=== PATIENT | male | born 2000 | race Caucasian/White ===

== ENCOUNTER 2023-09-19 13:54 | Inpatient (IN) | payer OTHER ==
[~2023-09-19 13:54] MED LIST: Iopamidol-370 76% 500 ML MDV (1 ML CHARGE) ONE
[2023-09-19] MEDS ORDERED: Sodium Chloride 0.9% 100 ML ONE (13:57)
[2023-09-19] MEDS ORDERED: Boostrix 0.5 ML (Tdap) VIAL (>/=7 yrs of age) ONE (13:57)
[2023-09-19] MEDS ORDERED: CEFAZOLIN 2 GM VIAL ONE (13:57)
[2023-09-19] MEDS ORDERED: Propofol 1,000 MG/100 ML VIAL IV ONE (14:07)
[2023-09-19 14:11] LABS: Hemoglobin 12.8 g/dL (14.0-18.0); Manual Diff?? YES; Mean Corpuscular HGB CONC 32.8 g/dL (32.0-36.0); Mean Corpuscular Volume 91.3 fl (78.0-98.0); Mean Platelet Volume 9.8 fL (7.4-10.4); Platelet Count 261 10x3/uL (130-400); RBC Distribution Width 12.5 % (11.5-14.5); Red Blood Cell (RBC) Count 4.27 mill/uL (4.00-5.20); White Blood Cell (WBC) Count 14.1 10x3/uL (4.8-10.8)
[2023-09-19 14:12] LABS: Delete Auto Diff?? YES
[2023-09-19] MEDS ORDERED: Sodium Chloride 3% 250 ML IVPB SCH (14:30)
[2023-09-19 14:31] LABS: INR-International Normal Ratio 1.4; Prothrombin Time 17.5 sec (12.0-14.7)
[2023-09-19 14:32] LABS: PTT 31.9 sec (22.9-36.1)
[2023-09-19 14:34] LABS: Band 8 % (5-11); CellaVision Operator ID LAB.KB; Lymphocytes 16 % (28-48); Monocytes 4 % (0-4); Neutrophil 70 % (31-61); Platelet Adequacy Comment Platelets Normal; RBC Morphology Within Normal Limits; Reactive Lymphocytes 2 % (0-10); Total Cell Count 101
[2023-09-19] MEDS ORDERED: niCARdipine 25 MG/10 ML SDV ONE (14:35)
[2023-09-19 14:37] LABS: Actual Bicarbonate (HCO3a) 23.7 mEq/L (22-28); Analyzer IN Cardio ER; Base Excess (BEa) -1.4 mEq/L (-2.0 to +3.0); CO2 Tension 41.5 mmHg (35.0-45.0); Calcium, Ionized (arterial) 1.12 mmol/L (1.12-1.30); Carboxyhemoglobin (COHb) 0.3 gm% (0.0-3.0); Hematocrit-ABG 39 % (42.0-52.0); Hemoglobin (Hb) 13.4 g/dL (11.4-15.4); O2 Tension (PaO2), arterial 187.4 mmHg (80.0-100.0); Potassium - ABG Lab 3.73 mmol/L (3.70-5.30); pH, Arterial 7.375 (7.35-7.45)
[2023-09-19 14:38] LABS: ALV-art Gradient 117.225 mmHg (0-20); Puncture Site RRA
[2023-09-19 14:38] LABS: Bacteria/HPF None Seen HPF (None Seen); Bilirubin Negative (Negative); Blood, Urine 3+ (Negative); Clarity Turbid (Clear); Glucose, Urine (Dipstick) Normal (Negative); Ketone, Urine Negative (Negative); Leukocyte Negative Leu/uL (Negative); Nitrite Negative (Negative); Protein, Urine (Dipstick) 100 mg/dL (Neg-Trace); RBC/HPF Greater than 50 HPF (0-3); Specific Gravity, Urine 1.021 (1.002-1.036); Squamous Epithelial None Seen HPF (0-3); Urobilinogen Normal mg/dL (Less than 2); pH, Urine 7.5 (5.0-9.0)
[2023-09-19 14:40] LABS: ALT (SGPT) 85 U/L (8-55); AST (SGOT) 102 U/L (5-34); Albumin 3.9 g/dL (3.5-5.0); Alkaline Phosphatase 86 U/L (50-130); Anion Gap 14 mmol/L (10-20); BUN (Urea Nitrogen) 12 mg/dL (8.9-20.6); Bilirubin, Total 0.6 mg/dL (0.2-1.2); Calc. Creatinine Clearance 0 mL/min (70-130); Calcium 8.4 mg/dL (7.8-10.44); Carbon Dioxide 22 mmol/L (22-29); Chloride 107 mmol/L (98-107); Estimated GFR 96; Globulin 2.9 g/dL (2.4-3.5); Glucose 148 mg/dL (70-105); Potassium 3.5 mmol/L (3.5-5.1); Protein, Total 6.8 g/dL (6.0-8.3); Sodium 139 mmol/L (136-145)
[2023-09-19] MEDS ORDERED: fentaNYL 50 mcg/mL 1 mL Vial ONE ×2 (14:47→15:12)
[2023-09-19] MEDS ORDERED: hydrALAZINE 20 MG/ML VIAL ONE (14:51)
[2023-09-19] MEDS ORDERED: fentaNYL PF 100 MCG/2 ML SYRINGE ONE (14:52)
[2023-09-19] MEDS ORDERED: PROPOFOL 20 ML ONE (14:52)
[2023-09-19] MEDS ORDERED: Rocuronium Bromide 10 MG/ML (10ML VIAL) ONE ×3 (14:53→15:30)
[2023-09-19] MEDS ORDERED: Ondansetron PF 4 MG/2 ML Vial ONE (14:53)
[2023-09-19] MEDS ORDERED: Dexamethasone 20 MG/5 ML VIAL ONE ×2 (14:53→15:30)
[2023-09-19] MEDS ORDERED: Lidocaine 1% PF 5 ML VIAL ONE (14:53)
[2023-09-19] MEDS ORDERED: levETIRAcetam 500 MG (5 mL) VIAL ONE (14:54)
[2023-09-19] MEDS ORDERED: Mannitol 12.5 GM/50 ML ONE (15:04)
[2023-09-19] MEDS ORDERED: EPINEPHrine 1 MG/ML VIAL ONE (15:05)
[2023-09-19] MEDS ORDERED: Lidocaine 1% (PF) 30 ML VIAL ONE (15:06)
[2023-09-19] MEDS ORDERED: Bacitracin Zinc Ointment 30 gm TUBE ONE (15:06)
[2023-09-19 15:16] LABS: Amphetamine Not Detected (NotDetected); Barbiturates Screen Not Detected (NotDetected); Benzodiazepine Screen Not Detected (NotDetected); Cocaine Metabolite Screen Not Detected (NotDetected); Methadone Not Detected (NotDetected); Methamphetamine Not Detected (NotDetected); Opiate Screen Not Detected (NotDetected); Oxycodone Screen Not Detected (NotDetected); Phencyclidine (PCP) Not Detected (NotDetected); THC/Cannabinoid Screen Not Detected (NotDetected); Tricyclic Screen Not Detected (NotDetected)
[2023-09-19 15:17] LABS: Acetaminophen Less than 10 mcg/mL (10.0-30.0); Alcohol Less than 10.0 mg/dL (Less than 10); Salicylate Less than 8.0 mg/dL (15.0-30.0)
[2023-09-19] MEDS ORDERED: PHENYLEPHRINE-NS 100 MCG/ML 10 ML SYRINGE ONE ×4 (15:30→17:00)
[2023-09-19] MEDS ORDERED: PROPOFOL 200 MG/20 ML VIAL ONE (15:30)
[2023-09-19] MEDS ORDERED: Vancomycin 1 GM VIAL ONE (16:00)
[2023-09-19] MEDS ORDERED: Thrombin 5000 UNITS/5 ML VIAL ONE (16:00)
[2023-09-19] MEDS ORDERED: Dextrose 50% Abboject 50 ML SYRINGE SLOW IVP PRN (16:21)
[2023-09-19] MEDS ORDERED: Glucagon 1 MG/ML KIT IM PRN (16:21)
[2023-09-19] MEDS ORDERED: Dextrose 5% in Water 1,000 ML IV PRN (16:21)
[2023-09-19] MEDS ORDERED: Ondansetron PF 4 MG/2 ML Vial IVP PRN (16:21)
[2023-09-19] MEDS ORDERED: Ondansetron ODT 4 MG TAB PO PRN (16:21)
[2023-09-19] MEDS ORDERED: TETANUS, DIPHTHERIA TOX,ADULT (TDVAX) 0.5 ML VIAL IM ONE (16:21)
[2023-09-19] MEDS ORDERED: Labetalol HCl 100 MG/20 ML VIAL SLOW IVP PRN (16:29)
[2023-09-19] MEDS ORDERED: niCARdipine 25 MG in Sodium Chloride 0.9% 250 ML 250 ML IVPB PRN ×2 (16:29→19:54)
[2023-09-19] MEDS ORDERED: Docusate 100 MG CAP PO PRN (16:29)
[2023-09-19] MEDS ORDERED: Ventilator Sedation Protocol 1 EACH FS SCH (16:30)
[2023-09-19] MEDS ORDERED: DISCONTINUE PREVIOUS NARCOTIC PAIN MEDICATIONS AND BENZODIAZEPINES FS SCH (16:45)
[2023-09-19] MEDS ORDERED: Propofol BOLUS 1,000 MG/100 ML VIAL IV PRN (16:45)
[2023-09-19] MEDS ORDERED: Fentanyl BOLUS 250 ML IVPB PRN (16:45)
[2023-09-19] MEDS ORDERED: Phenylephrine 40 MG/NS 250 ML 250 ML ONE (17:55)
[2023-09-19] MEDS ORDERED: CEFAZOLIN 1 GM VIAL ONE (19:05)
[2023-09-19] MEDS ORDERED: Sterile Water 20 ML ONE (19:05)
[2023-09-19] MEDS ORDERED: Midazolam HCl 2 mg/2 ml Vial ONE (19:22)
[2023-09-19] MEDS: Propofol 1,000 MG/100 ML VIAL IV PRN (19:35)
[2023-09-19] MEDS: Lactated Ringer's 1,000 ML IV SCH (19:45)
[2023-09-19] MEDS ORDERED: Water For Inject, Bacteriostat 30 ML ONE (19:47)
[2023-09-19] MEDS: NOREPINEPHRINE 8 MG/250 ML-D5W 250 ML IVPB SCH ×2 (20:00→20:13)
[2023-09-19 20:02] LABS: Actual Bicarbonate (HCO3a) 20.8 mEq/L (22-28); Base Excess (BEa) -3.7 mEq/L (-2.0 to +3.0); CO2 Tension 35.7 mmHg (35.0-45.0); Calcium, Ionized (arterial) 1.08 mmol/L (1.12-1.30); Carboxyhemoglobin (COHb) 0.1 gm% (0.0-3.0); Hematocrit-ABG 36 % (42.0-52.0); Hemoglobin (Hb) 12.3 g/dL (11.4-15.4); O2 Tension (PaO2), arterial 378.8 mmHg (80.0-100.0); Potassium - ABG Lab 4.04 mmol/L (3.70-5.30); pH, Arterial 7.383 (7.35-7.45)
[2023-09-19 20:15] LABS: Puncture Site ALINE
[2023-09-19 20:16] LABS: ALV-art Gradient 146.975 mmHg (0-20)
[2023-09-19] MEDS: Fentanyl CADD 100 ML IV SCH (20:16)
[2023-09-19 20:29] LABS: #Neutrophils 12.2 thou/uL (1.40-6.50); %Basophils 0.1 % (0.0-1.0); %Eosinophils 0.2 % (0.0-10.0); %Lymphocytes 1.8 % (28.0-48.0); %Monocytes 7.4 % (0.0-4.0); %Neutrophils 90.1 % (31.0-61.0); Hematocrit 35.9 % (42.0-52.0); Hemoglobin 11.9 g/dL (14.0-18.0); Mean Corpuscular HGB CONC 33.1 g/dL (32.0-36.0); Mean Corpuscular Hemoglobin 30.1 pg (25.0-35.0); Mean Corpuscular Volume 90.9 fl (78.0-98.0); Mean Platelet Volume 9.5 fL (7.4-10.4); Platelet Count 208 10x3/uL (130-400); RBC Distribution Width 12.6 % (11.5-14.5); Red Blood Cell (RBC) Count 3.95 mill/uL (4.00-5.20); White Blood Cell (WBC) Count 13.6 10x3/uL (4.8-10.8)
[2023-09-19 20:45] LABS: INR-International Normal Ratio 1.3; PTT 26.2 sec (22.9-36.1); Prothrombin Time 16.7 sec (12.0-14.7)
[2023-09-19 20:46] LABS: Lactic Acid 2.4 mmol/L (0.5-2.2)
[2023-09-19 20:53] LABS: ALT (SGPT) 81 U/L (8-55); AST (SGOT) 117 U/L (5-34); Albumin 3.7 g/dL (3.5-5.0); Alkaline Phosphatase 70 U/L (50-130); Anion Gap 13 mmol/L (10-20); BUN (Urea Nitrogen) 12 mg/dL (8.9-20.6); Calc. Creatinine Clearance 0 mL/min (70-130); Calcium 8.1 mg/dL (7.8-10.44); Carbon Dioxide 20 mmol/L (22-29); Chloride 110 mmol/L (98-107); Estimated GFR 95; Globulin 2.5 g/dL (2.4-3.5); Glucose 144 mg/dL (70-105); Magnesium 1.8 mg/dL (1.7-2.2); Phosphorus 2.9 mg/dL (2.3-4.7); Potassium 4.2 mmol/L (3.5-5.1); Protein, Total 6.2 g/dL (6.0-8.3); Sodium 139 mmol/L (136-145)
[2023-09-19] MEDS ORDERED: levETIRAcetam 500 MG (5 mL) VIAL SLOW IVP SCH (21:00)
[2023-09-19] MEDS: CEFAZOLIN 2 GM in Sodium Chloride 0.9% 100 ML IVPB SCH (21:45)
[2023-09-19] MEDS: levETIRAcetam 500 MG (5 mL) VIAL SLOW IVP SCH (21:46)
[2023-09-19] MEDS ORDERED: CEFAZOLIN 1 GM VIAL SLOW IVP SCH (22:00)
[2023-09-19] MEDS ORDERED: CEFAZOLIN 1 GM in Sodium Chloride 0.9% 100 ML IVPB SCH (22:00)
[2023-09-19 22:40] LABS: Hematocrit 35.3 % (42.0-52.0); Hemoglobin 11.6 g/dL (14.0-18.0)
[2023-09-20] MEDS: Lactated Ringer's 1,000 ML IV SCH ×4 (03:34→21:43)
[2023-09-20 04:18] LABS: #Monocytes 1.4 thou/uL (0.11-0.59); #Neutrophils 11.3 thou/uL (1.40-6.50); %Basophils 0.1 % (0.0-1.0); %Lymphocytes 3.8 % (28.0-48.0); %Monocytes 10.6 % (0.0-4.0); %Neutrophils 85.1 % (31.0-61.0); Hematocrit 35.4 % (42.0-52.0); Hemoglobin 11.5 g/dL (14.0-18.0); Mean Corpuscular HGB CONC 32.5 g/dL (32.0-36.0); Mean Corpuscular Hemoglobin 30.2 pg (25.0-35.0); Mean Corpuscular Volume 92.9 fl (78.0-98.0); Mean Platelet Volume 10.1 fL (7.4-10.4); Platelet Count 214 10x3/uL (130-400); RBC Distribution Width 12.8 % (11.5-14.5); Red Blood Cell (RBC) Count 3.81 mill/uL (4.00-5.20); White Blood Cell (WBC) Count 13.3 10x3/uL (4.8-10.8)
[2023-09-20 04:39] LABS: ALT (SGPT) 75 U/L (8-55); AST (SGOT) 112 U/L (5-34); Albumin 3.6 g/dL (3.5-5.0); Alkaline Phosphatase 62 U/L (50-130); Bilirubin, Direct 0.3 mg/dL (0.1-0.3); Bilirubin, Total 0.7 mg/dL (0.2-1.2); Protein, Total 6.3 g/dL (6.0-8.3)
[2023-09-20 04:45] LABS: Anion Gap 13 mmol/L (10-20); BUN (Urea Nitrogen) 11 mg/dL (8.9-20.6); Calc. Creatinine Clearance 136 mL/min (70-130); Calcium 8.4 mg/dL (7.8-10.44); Carbon Dioxide 22 mmol/L (22-29); Chloride 109 mmol/L (98-107); Estimated GFR 100; Glucose 148 mg/dL (70-105); Magnesium 1.8 mg/dL (1.7-2.2); Phosphorus 3.4 mg/dL (2.3-4.7); Potassium 3.9 mmol/L (3.5-5.1); Sodium 140 mmol/L (136-145)
[2023-09-20 04:58] LABS: INR-International Normal Ratio 1.2; PTT 27.1 sec (22.9-36.1); Prothrombin Time 15.8 sec (12.0-14.7)
[2023-09-20] MEDS: CEFAZOLIN 2 GM in Sodium Chloride 0.9% 100 ML IVPB SCH (05:30)
[2023-09-20 08:02] LABS: Actual Bicarbonate (HCO3a) 22.4 mEq/L (22-28); Base Excess (BEa) -2.1 mEq/L (-2.0 to +3.0); CO2 Tension 37.6 mmHg (35.0-45.0); Calcium, Ionized (arterial) 1.15 mmol/L (1.12-1.30); Carboxyhemoglobin (COHb) 0.8 gm% (0.0-3.0); Hematocrit-ABG 35 % (42.0-52.0); Hemoglobin (Hb) 11.9 g/dL (11.4-15.4); O2 Tension (PaO2), arterial 149.1 mmHg (80.0-100.0); Potassium - ABG Lab 3.84 mmol/L (3.70-5.30); pH, Arterial 7.393 (7.35-7.45)
[2023-09-20 08:03] LABS: Puncture Site Arterial Line
[2023-09-20] MEDS: Famotidine 20 MG TAB PO SCH (08:35)
[2023-09-20] MEDS: levETIRAcetam 500 MG (5 mL) VIAL SLOW IVP SCH ×2 (08:35→20:51)
[2023-09-20] MEDS ORDERED: Magnesium 2 GM/50 ML(in water) 2 GM in Premix 1 BAG IVPB SCH (08:45)
[2023-09-20] MEDS ORDERED: FLU VACC QS2023-24(6MOS UP)/PF 60 MCG/0.5 ML SYRINGE IM ONE (09:00)
[2023-09-20] MEDS: Propofol 1,000 MG/100 ML VIAL IV PRN ×2 (14:39→23:23)
[2023-09-20] MEDS: CEFAZOLIN 1 GM in Sodium Chloride 0.9% 100 ML IVPB SCH ×2 (14:39→22:06)
[2023-09-20] MEDS: NOREPINEPHRINE 8 MG/250 ML-D5W 250 ML IVPB SCH (16:19)
[2023-09-20] MEDS: Fentanyl CADD 100 ML IV SCH (17:10)
[2023-09-20] MEDS ORDERED: Mannitol 12.5 GM/50 ML SLOW IVP SCH ×2 (18:30→20:17)
[2023-09-20 19:01] LABS: Sodium 140 mmol/L (136-145)
[2023-09-20] MEDS ORDERED: Furosemide 20 MG (2 mL) VIAL SLOW IVP SCH (20:17)
[2023-09-20] MEDS: Acetaminophen 325 MG TAB PO PRN (20:26)
[2023-09-20] MEDS: Ondansetron PF 4 MG/2 ML Vial IVP PRN (22:59)
[2023-09-20] MEDS: Metoclopramide HCl 10 MG (2 mL) VIAL IVP SCH (23:23)
[2023-09-20 23:32] LABS: Sodium 140 mmol/L (136-145)
[2023-09-20] MEDS: Lorazepam 2 MG/ML VIAL SLOW IVP PRN (23:48)
[2023-09-21] MEDS: Lactated Ringer's 1,000 ML IV SCH ×2 (00:11→13:22)
[2023-09-21] MEDS: Mannitol 12.5 GM/50 ML SLOW IVP PRN ×4 (00:15→22:54)
[2023-09-21] MEDS ORDERED: Furosemide 40 MG (4 mL) VIAL SLOW IVP SCH ×2 (01:45→12:45)
[2023-09-21] MEDS ORDERED: Mannitol 12.5 GM/50 ML SLOW IVP SCH ×2 (01:45→12:45)
[2023-09-21] MEDS: Dexmedetomidine 400 MCG, Admixture Fee 1 EACH in Sodium Chloride 0.9% 96 ML IVPB SCH ×3 (02:08→21:28)
[2023-09-21] MEDS: Propofol 1,000 MG/100 ML VIAL IV PRN ×7 (02:21→23:40)
[2023-09-21] MEDS: Acetaminophen 325 MG TAB PO PRN (02:50)
[2023-09-21] MEDS ORDERED: Morphine 10 MG/ML VIAL SLOW IVP SCH (03:00)
[2023-09-21] MEDS ORDERED: Vecuronium 10 MG VIAL IV SCH (03:00)
[2023-09-21] MEDS ORDERED: Sterile Water 10 ML ONE (03:04)
[2023-09-21 04:00] LABS: #Monocytes 1.5 thou/uL (0.11-0.59); %Basophils 0.1 % (0.0-1.0); %Lymphocytes 5.4 % (28.0-48.0); %Monocytes 11.3 % (0.0-4.0); %Neutrophils 82.7 % (31.0-61.0); Hematocrit 32.5 % (42.0-52.0); Hemoglobin 10.8 g/dL (14.0-18.0); Mean Corpuscular HGB CONC 33.2 g/dL (32.0-36.0); Mean Corpuscular Hemoglobin 29.8 pg (25.0-35.0); Mean Corpuscular Volume 89.8 fl (78.0-98.0); Mean Platelet Volume 10.3 fL (7.4-10.4); Platelet Count 219 10x3/uL (130-400); RBC Distribution Width 12.8 % (11.5-14.5); Red Blood Cell (RBC) Count 3.62 mill/uL (4.00-5.20); White Blood Cell (WBC) Count 13.2 10x3/uL (4.8-10.8)
[2023-09-21 04:28] LABS: Anion Gap 15 mmol/L (10-20); BUN (Urea Nitrogen) 11 mg/dL (8.9-20.6); Calc. Creatinine Clearance 134 mL/min (70-130); Carbon Dioxide 27 mmol/L (22-29); Chloride 100 mmol/L (98-107); Estimated GFR 97; Glucose 149 mg/dL (70-105); Potassium 3.4 mmol/L (3.5-5.1); Sodium 139 mmol/L (136-145)
[2023-09-21] MEDS: Fentanyl CADD 100 ML IV SCH ×2 (05:04→15:13)
[2023-09-21] MEDS: Acetaminophen 650 MG/20.3 ML UDCUP PER TUBE SCH ×4 (05:33→21:28)
[2023-09-21] MEDS: CEFAZOLIN 1 GM in Sodium Chloride 0.9% 100 ML IVPB SCH ×3 (05:41→21:29)
[2023-09-21] MEDS ORDERED: Electrolyte Replacement Protocol 1 EACH FS SCH (06:30)
[2023-09-21] MEDS ORDERED: Electrolyte Replacement Protocol FS PRN (06:45)
[2023-09-21] MEDS ORDERED: Potassium Bicarbonate/Cit Ac 20 MEQ TAB PER TUBE SCH (06:45)
[2023-09-21] MEDS ORDERED: Magnesium 2 GM/50 ML(in water) 2 GM in Premix 1 BAG IVPB SCH (06:45)
[2023-09-21] MEDS: levETIRAcetam 500 MG (5 mL) VIAL SLOW IVP SCH ×2 (08:30→21:29)
[2023-09-21] MEDS: Metoclopramide HCl 10 MG (2 mL) VIAL IVP SCH ×3 (08:30→23:41)
[2023-09-21] MEDS: Famotidine 20 MG TAB PO SCH ×2 (08:30→21:29)
[2023-09-21 10:52] LABS: Sodium 140 mmol/L (136-145)
[2023-09-21 13:41] LABS: Potassium 3.6 mmol/L (3.5-5.1)
[2023-09-21 16:00] LABS: Sodium 140 mmol/L (136-145)
[2023-09-21] MEDS: NOREPINEPHRINE 8 MG/250 ML-D5W 250 ML IVPB SCH (16:09)
[2023-09-21] MEDS: Furosemide 100 MG (10 mL) VIAL SLOW IVP PRN ×2 (16:30→22:54)
[2023-09-21 22:25] LABS: Sodium 140 mmol/L (136-145)
[2023-09-22] MEDS: Fentanyl CADD 100 ML IV SCH ×3 (01:27→20:44)
[2023-09-22] MEDS: Lactated Ringer's 1,000 ML IV SCH ×2 (02:09→13:19)
[2023-09-22] MEDS: Propofol 1,000 MG/100 ML VIAL IV PRN ×5 (04:15→20:43)
[2023-09-22] MEDS: Acetaminophen 650 MG/20.3 ML UDCUP PER TUBE SCH ×4 (04:15→20:36)
[2023-09-22 04:33] LABS: Magnesium 2.2 mg/dL (1.7-2.2)
[2023-09-22] MEDS: CEFAZOLIN 1 GM in Sodium Chloride 0.9% 100 ML IVPB SCH ×3 (05:15→21:09)
[2023-09-22] MEDS: NOREPINEPHRINE 8 MG/250 ML-D5W 250 ML IVPB SCH (05:15)
[2023-09-22 06:54] LABS: Sodium 144 mmol/L (136-145)
[2023-09-22 07:05] LABS: Actual Bicarbonate (HCO3a) 28.6 mEq/L (22-28); Base Excess (BEa) 6.2 mEq/L (-2.0 to +3.0); CO2 Tension 33.3 mmHg (35.0-45.0); Carboxyhemoglobin (COHb) 0.3 gm% (0.0-3.0); Hematocrit-ABG 32 % (42.0-52.0); Hemoglobin (Hb) 10.8 g/dL (11.4-15.4); O2 Tension (PaO2), arterial 115.6 mmHg (80.0-100.0); Potassium - ABG Lab 3.27 mmol/L (3.70-5.30); pH, Arterial 7.552 (7.35-7.45)
[2023-09-22 07:13] LABS: #Eosinphils 0.1 thou/uL (0.0-0.7); #Monocytes 0.7 thou/uL (0.11-0.59); %Basophils 0.2 % (0.0-1.0); %Eosinophils 0.5 % (0.0-10.0); %Monocytes 6.9 % (0.0-4.0); %Neutrophils 82.8 % (31.0-61.0); Hematocrit 29.3 % (42.0-52.0); Mean Corpuscular HGB CONC 34.1 g/dL (32.0-36.0); Mean Corpuscular Hemoglobin 30.4 pg (25.0-35.0); Mean Corpuscular Volume 89.1 fl (78.0-98.0); Mean Platelet Volume 10.3 fL (7.4-10.4); Platelet Count 165 10x3/uL (130-400); RBC Distribution Width 12.3 % (11.5-14.5); Red Blood Cell (RBC) Count 3.29 mill/uL (4.00-5.20); White Blood Cell (WBC) Count 9.7 10x3/uL (4.8-10.8)
[2023-09-22 07:17] LABS: Puncture Site Arterial Line
[2023-09-22 07:19] LABS: ALV-art Gradient 127.975 mmHg (0-20)
[2023-09-22] MEDS: Metoclopramide HCl 10 MG (2 mL) VIAL IVP SCH ×3 (08:08→23:21)
[2023-09-22] MEDS: levETIRAcetam 500 MG (5 mL) VIAL SLOW IVP SCH ×2 (08:09→20:36)
[2023-09-22] MEDS: Famotidine 20 MG TAB PO SCH ×2 (08:09→20:36)
[2023-09-22] MEDS: Furosemide 100 MG (10 mL) VIAL SLOW IVP PRN (08:10)
[2023-09-22 08:12] LABS: ALT (SGPT) 31 U/L (8-55); AST (SGOT) 49 U/L (5-34); Albumin 3.6 g/dL (3.5-5.0); Alkaline Phosphatase 74 U/L (50-130); Anion Gap 17 mmol/L (10-20); BUN (Urea Nitrogen) 12 mg/dL (8.9-20.6); Bilirubin, Total 0.6 mg/dL (0.2-1.2); Calc. Creatinine Clearance 141 mL/min (70-130); Calcium 8.9 mg/dL (7.8-10.44); Carbon Dioxide 28 mmol/L (22-29); Chloride 101 mmol/L (98-107); Estimated GFR 109; Globulin 3.6 g/dL (2.4-3.5); Glucose 119 mg/dL (70-105); Potassium 3.2 mmol/L (3.5-5.1); Protein, Total 7.2 g/dL (6.0-8.3); Sodium 143 mmol/L (136-145)
[2023-09-22] MEDS: Mannitol 12.5 GM/50 ML SLOW IVP PRN (08:24)
[2023-09-22] MEDS ORDERED: Potassium Bicarbonate/Cit Ac 20 MEQ TAB PER TUBE SCH (09:00)
[2023-09-22] MEDS: Senokot S 8.6-50 MG TAB PO SCH ×2 (09:42→20:36)
[2023-09-22] MEDS: Polyethylene Glycol 3350 17 GM Packet PO SCH (09:43)
[2023-09-22 10:37] LABS: Actual Bicarbonate (HCO3a) 32.6 mEq/L (22-28); Base Excess (BEa) 7.7 mEq/L (-2.0 to +3.0); CO2 Tension 47.5 mmHg (35.0-45.0); Calcium, Ionized (arterial) 1.11 mmol/L (1.12-1.30); Carboxyhemoglobin (COHb) 0.3 gm% (0.0-3.0); Hematocrit-ABG 33 % (42.0-52.0); Hemoglobin (Hb) 11.1 g/dL (11.4-15.4); O2 Tension (PaO2), arterial 140.2 mmHg (80.0-100.0); Potassium - ABG Lab 3.69 mmol/L (3.70-5.30); pH, Arterial 7.455 (7.35-7.45)
[2023-09-22 10:39] LABS: ALV-art Gradient 85.625 mmHg (0-20); Puncture Site Arterial Line
[2023-09-22] MEDS: Dexmedetomidine 400 MCG, Admixture Fee 1 EACH in Sodium Chloride 0.9% 96 ML IVPB SCH ×2 (11:01→22:39)
[2023-09-22 11:23] LABS: Sodium 143 mmol/L (136-145)
[2023-09-22 19:07] LABS: Sodium 142 mmol/L (136-145)
[2023-09-22 23:31] LABS: Sodium 143 mmol/L (136-145)
[2023-09-23] MEDS: Propofol 1,000 MG/100 ML VIAL IV PRN ×7 (00:21→20:35)
[2023-09-23] MEDS: NOREPINEPHRINE 8 MG/250 ML-D5W 250 ML IVPB SCH (01:59)
[2023-09-23] MEDS: Lactated Ringer's 1,000 ML IV SCH ×2 (01:59→15:26)
[2023-09-23] MEDS: Acetaminophen 650 MG/20.3 ML UDCUP PER TUBE SCH ×4 (03:34→21:43)
[2023-09-23 04:43] LABS: Hematocrit 27.3 % (42.0-52.0); Hemoglobin 9.3 g/dL (14.0-18.0); Manual Diff?? YES; Mean Corpuscular HGB CONC 34.1 g/dL (32.0-36.0); Mean Corpuscular Hemoglobin 30.8 pg (25.0-35.0); Mean Corpuscular Volume 90.4 fl (78.0-98.0); Mean Platelet Volume 10.5 fL (7.4-10.4); Platelet Count 148 10x3/uL (130-400); RBC Distribution Width 12.3 % (11.5-14.5); Red Blood Cell (RBC) Count 3.02 mill/uL (4.00-5.20); White Blood Cell (WBC) Count 7.2 10x3/uL (4.8-10.8)
[2023-09-23 04:49] LABS: Delete Auto Diff?? YES
[2023-09-23] MEDS: CEFAZOLIN 1 GM in Sodium Chloride 0.9% 100 ML IVPB SCH ×3 (06:12→21:44)
[2023-09-23 06:28] LABS: ALT (SGPT) 22 U/L (8-55); AST (SGOT) 36 U/L (5-34); Albumin 3.4 g/dL (3.5-5.0); Alkaline Phosphatase 75 U/L (50-130); Anion Gap 12 mmol/L (10-20); BUN (Urea Nitrogen) 13 mg/dL (8.9-20.6); Bilirubin, Total 0.6 mg/dL (0.2-1.2); Calc. Creatinine Clearance 0 mL/min (70-130); Calcium 9.1 mg/dL (7.8-10.44); Carbon Dioxide 32 mmol/L (22-29); Chloride 101 mmol/L (98-107); Estimated GFR 128; Globulin 3.3 g/dL (2.4-3.5); Glucose 119 mg/dL (70-105); Potassium 3.4 mmol/L (3.5-5.1); Protein, Total 6.7 g/dL (6.0-8.3); Sodium 142 mmol/L (136-145)
[2023-09-23 06:34] LABS: Band 43 % (5-11); CellaVision Operator ID LAB.JMM; Lymphocytes 5 % (28-48); Metamyelocyte 2 % (0-0); Monocytes 6 % (0-4); Myelocyte 1 % (0-0); Neutrophil 43 % (31-61); Platelet Adequacy Comment Platelets Normal; RBC Morphology Within Normal Limits; Total Cell Count 100
[2023-09-23] MEDS ORDERED: Potassium Chloride 40 MEQ in Premix 1 BAG IVPB SCH (07:00)
[2023-09-23 07:21] LABS: Actual Bicarbonate (HCO3a) 32.8 mEq/L (22-28); Base Excess (BEa) 7.2 mEq/L (-2.0 to +3.0); CO2 Tension 52.1 mmHg (35.0-45.0); Calcium, Ionized (arterial) 1.12 mmol/L (1.12-1.30); Carboxyhemoglobin (COHb) 0.3 gm% (0.0-3.0); Hematocrit-ABG 29 % (42.0-52.0); O2 Tension (PaO2), arterial 90.9 mmHg (80.0-100.0); Potassium - ABG Lab 3.45 mmol/L (3.70-5.30); pH, Arterial 7.417 (7.35-7.45)
[2023-09-23 07:24] LABS: ALV-art Gradient 129.175 mmHg (0-20); Puncture Site Arterial Line
[2023-09-23] MEDS: Fentanyl CADD 100 ML IV SCH ×2 (07:41→17:23)
[2023-09-23] MEDS: Metoclopramide HCl 10 MG (2 mL) VIAL IVP SCH ×2 (08:11→15:27)
[2023-09-23] MEDS ORDERED: Magnesium 2 GM/50 ML(in water) 2 GM in Premix 1 BAG IVPB SCH (09:30)
[2023-09-23] MEDS: Dexmedetomidine 400 MCG, Admixture Fee 1 EACH in Sodium Chloride 0.9% 96 ML IVPB SCH ×2 (09:33→21:47)
[2023-09-23] MEDS: levETIRAcetam 500 MG (5 mL) VIAL SLOW IVP SCH ×2 (09:33→21:43)
[2023-09-23] MEDS: Senokot S 8.6-50 MG TAB PO SCH ×2 (09:33→21:43)
[2023-09-23] MEDS: Polyethylene Glycol 3350 17 GM Packet PO SCH (09:33)
[2023-09-23] MEDS: Famotidine 20 MG TAB PO SCH ×2 (09:33→21:42)
[2023-09-23] MEDS: Labetalol HCl 100 MG/20 ML VIAL SLOW IVP PRN (15:14)
[2023-09-23 18:37] LABS: Potassium 3.6 mmol/L (3.5-5.1)
[2023-09-24] MEDS: Metoclopramide HCl 10 MG (2 mL) VIAL IVP SCH ×4 (00:01→23:12)
[2023-09-24] MEDS: Propofol 1,000 MG/100 ML VIAL IV PRN ×8 (00:01→23:20)
[2023-09-24] MEDS: Fentanyl CADD 100 ML IV SCH ×3 (03:20→23:08)
[2023-09-24] MEDS: Lactated Ringer's 1,000 ML IV SCH ×2 (03:36→17:01)
[2023-09-24] MEDS: Acetaminophen 650 MG/20.3 ML UDCUP PER TUBE SCH ×4 (03:36→21:26)
[2023-09-24 04:30] LABS: Hematocrit 25.9 % (42.0-52.0); Hemoglobin 8.4 g/dL (14.0-18.0); Manual Diff?? YES; Mean Corpuscular HGB CONC 32.4 g/dL (32.0-36.0); Mean Corpuscular Hemoglobin 29.6 pg (25.0-35.0); Mean Corpuscular Volume 91.2 fl (78.0-98.0); Mean Platelet Volume 10.7 fL (7.4-10.4); Platelet Count 159 10x3/uL (130-400); RBC Distribution Width 12.4 % (11.5-14.5); Red Blood Cell (RBC) Count 2.84 mill/uL (4.00-5.20)
[2023-09-24 04:58] LABS: Anion Gap 13 mmol/L (10-20); BUN (Urea Nitrogen) 14 mg/dL (8.9-20.6); Calc. Creatinine Clearance 0 mL/min (70-130); Carbon Dioxide 29 mmol/L (22-29); Chloride 104 mmol/L (98-107); Estimated GFR 133; Glucose 119 mg/dL (70-105); Potassium 3.9 mmol/L (3.5-5.1); Sodium 143 mmol/L (136-145)
[2023-09-24 04:59] LABS: ALT (SGPT) 23 U/L (8-55); AST (SGOT) 35 U/L (5-34); Alkaline Phosphatase 92 U/L (50-130); Bilirubin, Total 0.7 mg/dL (0.2-1.2); Calcium 8.9 mg/dL (7.6-10.4); Globulin 3.6 g/dL (2.4-3.5); Protein, Total 6.6 g/dL (6.0-8.3)
[2023-09-24 05:01] LABS: Delete Auto Diff?? YES
[2023-09-24] MEDS: CEFAZOLIN 1 GM in Sodium Chloride 0.9% 100 ML IVPB SCH ×2 (05:03→13:12)
[2023-09-24 05:49] LABS: Band 35 % (5-11); CellaVision Operator ID lab.abc; Eosinophils 1 % (0-10); Lymphocytes 2 % (28-48); Monocytes 12 % (0-4); Neutrophil 50 % (31-61); Platelet Adequacy Comment Platelets Normal; Polychromasia SLIGHT = 2-3 cells HPF (0-2); Smudge Cells 13.1 %; Total Cell Count 99
[2023-09-24 07:51] LABS: Actual Bicarbonate (HCO3a) 24.8 mEq/L (22-28); Base Excess (BEa) 0.2 mEq/L (-2.0 to +3.0); Calcium, Ionized (arterial) 1.14 mmol/L (1.12-1.30); Carboxyhemoglobin (COHb) 0.5 gm% (0.0-3.0); Hematocrit-ABG 27 % (42.0-52.0); Hemoglobin (Hb) 9.1 g/dL (11.4-15.4); O2 Tension (PaO2), arterial 78.8 mmHg (80.0-100.0); Puncture Site Arterial Line; pH, Arterial 7.411 (7.35-7.45)
[2023-09-24] MEDS ORDERED: Magnesium 2 GM/50 ML(in water) 2 GM in Premix 1 BAG IVPB SCH (08:00)
[2023-09-24] MEDS: Labetalol HCl 100 MG/20 ML VIAL SLOW IVP PRN ×2 (08:16→18:07)
[2023-09-24] MEDS: Senokot S 8.6-50 MG TAB PO SCH ×2 (08:58→20:10)
[2023-09-24] MEDS: Famotidine 20 MG TAB PO SCH ×2 (08:58→20:09)
[2023-09-24] MEDS: Polyethylene Glycol 3350 17 GM Packet PO SCH (08:59)
[2023-09-24] MEDS: levETIRAcetam 500 MG (5 mL) VIAL SLOW IVP SCH ×2 (08:59→20:10)
[2023-09-24] MEDS: Dexmedetomidine 400 MCG, Admixture Fee 1 EACH in Sodium Chloride 0.9% 96 ML IVPB SCH ×2 (09:20→20:10)
[2023-09-24] MEDS: Cefepime 2 GM in Sodium Chloride 0.9% 100 ML IVPB SCH ×2 (10:35→21:12)
[2023-09-24] MEDS: LevoFLOXacin 750 mg/D5W 750 MG in Premix 1 BAG IVPB SCH (10:36)
[2023-09-24] MEDS ORDERED: VANCOMYCIN IVPB PRN (11:27)
[2023-09-24] MEDS ORDERED: Vancomycin (BATCH) 2 GM in Premix 1 BAG IVPB SCH (11:30)
[2023-09-24] MEDS: Vancomycin 1 GM in Premix 1 BAG IVPB SCH (21:12)
[2023-09-25] MEDS: Acetaminophen 650 MG/20.3 ML UDCUP PER TUBE SCH ×4 (02:59→21:13)
[2023-09-25] MEDS: Propofol 1,000 MG/100 ML VIAL IV PRN ×7 (02:59→18:46)
[2023-09-25] MEDS: Lorazepam 2 MG/ML VIAL SLOW IVP PRN ×5 (04:20→22:07)
[2023-09-25] MEDS: Vancomycin 1 GM in Premix 1 BAG IVPB SCH ×3 (04:20→20:43)
[2023-09-25 04:28] LABS: Delete Auto Diff?? YES; Hematocrit 23.1 % (42.0-52.0); Hemoglobin 7.4 g/dL (14.0-18.0); Manual Diff?? YES; Mean Corpuscular Hemoglobin 29.6 pg (25.0-35.0); Mean Corpuscular Volume 92.4 fl (78.0-98.0); Mean Platelet Volume 10.3 fL (7.4-10.4); Platelet Count 170 10x3/uL (130-400); RBC Distribution Width 12.7 % (11.5-14.5); White Blood Cell (WBC) Count 4.3 10x3/uL (4.8-10.8)
[2023-09-25 04:52] LABS: ALT (SGPT) 44 U/L (8-55); AST (SGOT) 69 U/L (5-34); Albumin 2.7 g/dL (3.5-5.0); Alkaline Phosphatase 108 U/L (50-130); Anion Gap 14 mmol/L (10-20); BUN (Urea Nitrogen) 16 mg/dL (8.9-20.6); Bilirubin, Total 0.7 mg/dL (0.2-1.2); Calc. Creatinine Clearance 212 mL/min (70-130); Calcium 8.5 mg/dL (7.8-10.44); Carbon Dioxide 26 mmol/L (22-29); Chloride 104 mmol/L (98-107); Estimated GFR 134; Globulin 3.4 g/dL (2.4-3.5); Glucose 111 mg/dL (70-105); Potassium 3.5 mmol/L (3.5-5.1); Protein, Total 6.1 g/dL (6.0-8.3); Sodium 140 mmol/L (136-145)
[2023-09-25 05:22] LABS: Band 33 % (5-11); CellaVision Operator ID LAB.CLH1; Eosinophils 3 % (0-10); Hypochromia SLIGHT = 6-15 cells HPF (0-5); Large Platelets 3.2 % (0-5); Lymphocytes 18 % (28-48); Macrocytosis SLIGHT = 6-15 cells HPF (0-5); Metamyelocyte 3 % (0-0); Monocytes 3 % (0-4); Neutrophil 36 % (31-61); Platelet Adequacy Comment Platelets Normal; Polychromasia MODERATE = 3-4 cells HPF (0-2); Promyelocytes 4 % (0-0); Total Cell Count 95
[2023-09-25] MEDS: Dexmedetomidine 400 MCG, Admixture Fee 1 EACH in Sodium Chloride 0.9% 96 ML IVPB SCH (06:07)
[2023-09-25] MEDS: Lactated Ringer's 1,000 ML IV SCH ×2 (06:24→21:20)
[2023-09-25 07:57] LABS: Actual Bicarbonate (HCO3a) 27.7 mEq/L (22-28); Base Excess (BEa) 3.1 mEq/L (-2.0 to +3.0); CO2 Tension 42.9 mmHg (35.0-45.0); Calcium, Ionized (arterial) 1.12 mmol/L (1.12-1.30); Carboxyhemoglobin (COHb) 0.5 gm% (0.0-3.0); Hematocrit-ABG 24 % (42.0-52.0); O2 Tension (PaO2), arterial 81.5 mmHg (80.0-100.0); Potassium - ABG Lab 3.25 mmol/L (3.70-5.30); pH, Arterial 7.428 (7.35-7.45)
[2023-09-25 07:59] LABS: Puncture Site Arterial Line
[2023-09-25 08:00] LABS: ALV-art Gradient 150.075 mmHg (0-20)
[2023-09-25] MEDS: Dexmedetomidine 1,000 MCG, Admixture Fee 1 EACH in Sodium Chloride 0.9% 250 ML 240 ML IVPB SCH (08:17)
[2023-09-25] MEDS: Potassium Chloride 20 MEQ in Premix 1 BAG IVPB SCH ×2 (08:18→09:28)
[2023-09-25] MEDS: Metoclopramide HCl 10 MG (2 mL) VIAL IVP SCH ×2 (08:19→15:49)
[2023-09-25] MEDS: levETIRAcetam 500 MG (5 mL) VIAL SLOW IVP SCH ×2 (08:19→21:13)
[2023-09-25] MEDS: Fentanyl CADD 100 ML IV SCH ×2 (08:19→16:41)
[2023-09-25] MEDS: Famotidine 20 MG TAB PO SCH ×2 (08:49→21:12)
[2023-09-25] MEDS: Senokot S 8.6-50 MG TAB PO SCH ×2 (08:49→21:12)
[2023-09-25] MEDS: Polyethylene Glycol 3350 17 GM Packet PO SCH (08:49)
[2023-09-25] MEDS: Cefepime 2 GM in Sodium Chloride 0.9% 100 ML IVPB SCH ×2 (09:28→21:12)
[2023-09-25] MEDS: LevoFLOXacin 750 mg/D5W 750 MG in Premix 1 BAG IVPB SCH (09:29)
[2023-09-25] MEDS: Labetalol HCl 100 MG/20 ML VIAL SLOW IVP PRN ×2 (10:20→16:47)
[2023-09-25] MEDS: Furosemide 100 MG (10 mL) VIAL SLOW IVP PRN ×2 (10:26→16:34)
[2023-09-25] MEDS: Mannitol 12.5 GM/50 ML SLOW IVP PRN ×2 (10:26→16:34)
[2023-09-25] MEDS: niCARdipine 25 MG in Sodium Chloride 0.9% 250 ML 250 ML IVPB SCH ×3 (10:59→17:17)
[2023-09-25 12:09] LABS: Potassium 3.5 mmol/L (3.5-5.1)
[2023-09-25] MEDS ORDERED: Vecuronium 10 MG VIAL ONE (12:11)
[2023-09-25] MEDS: Vecuronium 10 MG VIAL IVP PRN ×3 (12:12→16:47)
[2023-09-25 12:35] LABS: Actual Bicarbonate (HCO3a) 28.9 mEq/L (22-28); Base Excess (BEa) 4.3 mEq/L (-2.0 to +3.0); CO2 Tension 43.5 mmHg (35.0-45.0); Calcium, Ionized (arterial) 1.11 mmol/L (1.12-1.30); Carboxyhemoglobin (COHb) 0.3 gm% (0.0-3.0); Hematocrit-ABG 31 % (42.0-52.0); Hemoglobin (Hb) 10.4 g/dL (11.4-15.4); Potassium - ABG Lab 3.46 mmol/L (3.70-5.30)
[2023-09-25 12:36] LABS: O2 Tension (PaO2), arterial 43.3 mmHg (80.0-100.0); Puncture Site Arterial Line
[2023-09-25 12:37] LABS: ALV-art Gradient 615.325 mmHg (0-20)
[2023-09-25] MEDS ORDERED: Vecuronium 10 MG VIAL IV SCH (13:15)
[2023-09-25] MEDS ORDERED: Sodium Chloride 0.9% 500 ML IV SCH (13:15)
[2023-09-25 14:29] LABS: Anion Gap 14 mmol/L (10-20); BUN (Urea Nitrogen) 14 mg/dL (8.9-20.6); Calc. Creatinine Clearance 214 mL/min (70-130); Calcium 8.7 mg/dL (7.8-10.44); Carbon Dioxide 28 mmol/L (22-29); Chloride 101 mmol/L (98-107); Estimated GFR 134; Glucose 129 mg/dL (70-105); Potassium 3.3 mmol/L (3.5-5.1); Sodium 140 mmol/L (136-145)
[2023-09-25] MEDS ORDERED: Potassium Bicarbonate/Cit Ac 20 MEQ TAB PER TUBE SCH (16:15)
[2023-09-25] MEDS ORDERED: Piperacillin/Tazobactam 3.375 GM in Sodium Chloride 0.9% 100 ML IVPB SCH (18:15)
[2023-09-25] MEDS ORDERED: Vancomycin (BATCH) 1.25 GM in Premix 1 BAG IVPB SCH (20:30)
[2023-09-25] MEDS: niCARdipine 50 MG, Admixture Fee 1 EACH in Sodium Chloride 0.9% 250 ML 230 ML IV SCH (21:11)
[2023-09-25] MEDS: Piperacillin/Tazobactam 3.375 GM in Sodium Chloride 0.9% 100 ML IVPB SCH (21:12)
[2023-09-25 22:16] LABS: Anion Gap 16 mmol/L (10-20); BUN (Urea Nitrogen) 14 mg/dL (8.9-20.6); Calc. Creatinine Clearance 208 mL/min (70-130); Calcium 8.8 mg/dL (7.8-10.44); Carbon Dioxide 29 mmol/L (22-29); Chloride 100 mmol/L (98-107); Estimated GFR 133; Glucose 108 mg/dL (70-105); Potassium 3.5 mmol/L (3.5-5.1); Sodium 141 mmol/L (136-145)
[2023-09-26] MEDS: Metoclopramide HCl 10 MG (2 mL) VIAL IVP SCH ×3 (01:05→16:57)
[2023-09-26] MEDS: Propofol 1,000 MG/100 ML VIAL IV PRN ×8 (01:37→21:41)
[2023-09-26] MEDS: Fentanyl CADD 100 ML IV SCH ×3 (02:07→20:59)
[2023-09-26] MEDS: Acetaminophen 650 MG/20.3 ML UDCUP PER TUBE SCH ×4 (03:21→22:23)
[2023-09-26] MEDS ORDERED: Vancomycin (BATCH) 1.25 GM in Premix 1 BAG IVPB SCH (04:00)
[2023-09-26] MEDS: Dexmedetomidine 1,000 MCG, Admixture Fee 1 EACH in Sodium Chloride 0.9% 250 ML 240 ML IVPB SCH ×2 (04:09→16:56)
[2023-09-26] MEDS: niCARdipine 50 MG, Admixture Fee 1 EACH in Sodium Chloride 0.9% 250 ML 230 ML IV SCH ×2 (04:10→19:16)
[2023-09-26 04:32] LABS: Hematocrit 23.6 % (42.0-52.0); Hemoglobin 7.7 g/dL (14.0-18.0); Manual Diff?? YES; Mean Corpuscular HGB CONC 32.6 g/dL (32.0-36.0); Mean Corpuscular Hemoglobin 29.5 pg (25.0-35.0); Mean Corpuscular Volume 90.4 fl (78.0-98.0); Mean Platelet Volume 9.6 fL (7.4-10.4); Platelet Count 202 10x3/uL (130-400); RBC Distribution Width 12.7 % (11.5-14.5); Red Blood Cell (RBC) Count 2.61 mill/uL (4.00-5.20); White Blood Cell (WBC) Count 7.2 10x3/uL (4.8-10.8)
[2023-09-26 04:35] LABS: Delete Auto Diff?? YES
[2023-09-26 04:57] LABS: Anisocytosis SLIGHT = 6-15 cells HPF (0-5); Band 19 % (5-11); CellaVision Operator ID lab.sh2; Eosinophils 2 % (0-10); Lymphocytes 12 % (28-48); Macrocytosis SLIGHT = 6-15 cells HPF (0-5); Monocytes 7 % (0-4); Neutrophil 61 % (31-61); Platelet Adequacy Comment Platelets Normal; Polychromasia SLIGHT = 2-3 cells HPF (0-2); Smudge Cells 22.5 %; Target Cells SLIGHT = 2-5 cells HPF (0-1); Total Cell Count 102
[2023-09-26 04:58] LABS: ALT (SGPT) 46 U/L (8-55); AST (SGOT) 49 U/L (5-34); Albumin 2.7 g/dL (3.5-5.0); Alkaline Phosphatase 124 U/L (50-130); Anion Gap 11 mmol/L (10-20); BUN (Urea Nitrogen) 17 mg/dL (8.9-20.6); Bilirubin, Total 0.8 mg/dL (0.2-1.2); Calc. Creatinine Clearance 206 mL/min (70-130); Calcium 8.5 mg/dL (7.8-10.44); Carbon Dioxide 30 mmol/L (22-29); Chloride 102 mmol/L (98-107); Estimated GFR 132; Globulin 3.6 g/dL (2.4-3.5); Glucose 104 mg/dL (70-105); Potassium 3.4 mmol/L (3.5-5.1); Protein, Total 6.3 g/dL (6.0-8.3); Sodium 140 mmol/L (136-145)
[2023-09-26] MEDS: Lorazepam 2 MG/ML VIAL SLOW IVP PRN ×4 (05:14→20:19)
[2023-09-26] MEDS: Piperacillin/Tazobactam 3.375 GM in Sodium Chloride 0.9% 100 ML IVPB SCH (05:14)
[2023-09-26 07:47] LABS: Actual Bicarbonate (HCO3a) 28.1 mEq/L (22-28); Base Excess (BEa) 4.4 mEq/L (-2.0 to +3.0); CO2 Tension 38.3 mmHg (35.0-45.0); Calcium, Ionized (arterial) 1.12 mmol/L (1.12-1.30); Carboxyhemoglobin (COHb) 0.6 gm% (0.0-3.0); Hematocrit-ABG 24 % (42.0-52.0); Hemoglobin (Hb) 8.2 g/dL (11.4-15.4); O2 Tension (PaO2), arterial 88.1 mmHg (80.0-100.0); pH, Arterial 7.484 (7.35-7.45)
[2023-09-26 07:48] LABS: ALV-art Gradient 363.125 mmHg (0-20); Puncture Site ALINE
[2023-09-26] MEDS: Potassium Chloride 20 MEQ in Premix 1 BAG IVPB SCH ×2 (08:00→10:01)
[2023-09-26] MEDS: levETIRAcetam 500 MG (5 mL) VIAL SLOW IVP SCH ×2 (08:00→21:13)
[2023-09-26] MEDS: Senokot S 8.6-50 MG TAB PO SCH ×2 (09:46→21:13)
[2023-09-26] MEDS: Polyethylene Glycol 3350 17 GM Packet PO SCH (09:46)
[2023-09-26] MEDS: Pantoprazole 40 MG VIAL IVP SCH ×2 (10:01→21:41)
[2023-09-26] MEDS: LevoFLOXacin 750 mg/D5W 750 MG in Premix 1 BAG IVPB SCH (10:02)
[2023-09-26] MEDS: Lactated Ringer's 1,000 ML IV SCH (11:16)
[2023-09-26 21:49] LABS: Anion Gap 13 mmol/L (10-20); BUN (Urea Nitrogen) 16 mg/dL (8.9-20.6); Calc. Creatinine Clearance 212 mL/min (70-130); Calcium 8.5 mg/dL (7.8-10.44); Carbon Dioxide 27 mmol/L (22-29); Chloride 105 mmol/L (98-107); Estimated GFR 134; Glucose 110 mg/dL (70-105); Potassium 3.6 mmol/L (3.5-5.1); Sodium 141 mmol/L (136-145)
[2023-09-26] MEDS: Mannitol 12.5 GM/50 ML SLOW IVP PRN (22:39)
[2023-09-26] MEDS: Furosemide 100 MG (10 mL) VIAL SLOW IVP PRN (22:39)
[2023-09-27] MEDS: Metoclopramide HCl 10 MG (2 mL) VIAL IVP SCH ×4 (00:08→22:33)
[2023-09-27] MEDS: Lorazepam 2 MG/ML VIAL SLOW IVP PRN ×3 (00:08→15:09)
[2023-09-27] MEDS: Lactated Ringer's 1,000 ML IV SCH ×2 (00:17→12:27)
[2023-09-27] MEDS: Propofol 1,000 MG/100 ML VIAL IV PRN ×8 (00:35→22:00)
[2023-09-27] MEDS: niCARdipine 50 MG, Admixture Fee 1 EACH in Sodium Chloride 0.9% 250 ML 230 ML IV SCH ×3 (01:39→23:06)
[2023-09-27 04:19] LABS: #Basophils 0.1 thou/uL (0.0-0.2); #Eosinphils 0.2 thou/uL (0.0-0.7); #Monocytes 0.9 thou/uL (0.11-0.59); #Neutrophils 7.3 thou/uL (1.40-6.50); %Basophils 0.8 % (0.0-1.0); %Eosinophils 1.9 % (0.0-10.0); %Lymphocytes 6.6 % (28.0-48.0); %Neutrophils 70.9 % (31.0-61.0); Hematocrit 24.7 % (42.0-52.0); Hemoglobin 8.1 g/dL (14.0-18.0); Manual Diff?? YES; Mean Corpuscular HGB CONC 32.8 g/dL (32.0-36.0); Mean Corpuscular Hemoglobin 29.3 pg (25.0-35.0); Mean Corpuscular Volume 89.5 fl (78.0-98.0); Mean Platelet Volume 9.8 fL (7.4-10.4); Platelet Count 233 10x3/uL (130-400); RBC Distribution Width 12.6 % (11.5-14.5); Red Blood Cell (RBC) Count 2.76 mill/uL (4.00-5.20); White Blood Cell (WBC) Count 10.2 10x3/uL (4.8-10.8)
[2023-09-27] MEDS: Dexmedetomidine 1,000 MCG, Admixture Fee 1 EACH in Sodium Chloride 0.9% 250 ML 240 ML IVPB SCH ×2 (04:38→08:39)
[2023-09-27] MEDS: Acetaminophen 650 MG/20.3 ML UDCUP PER TUBE SCH ×4 (04:38→19:53)
[2023-09-27 04:52] LABS: ALT (SGPT) 47 U/L (8-55); AST (SGOT) 48 U/L (5-34); Albumin 2.8 g/dL (3.5-5.0); Alkaline Phosphatase 135 U/L (50-130); Anion Gap 15 mmol/L (10-20); BUN (Urea Nitrogen) 17 mg/dL (8.9-20.6); Bilirubin, Total 0.9 mg/dL (0.2-1.2); Calc. Creatinine Clearance 212 mL/min (70-130); Calcium 8.9 mg/dL (7.8-10.44); Carbon Dioxide 29 mmol/L (22-29); Chloride 102 mmol/L (98-107); Estimated GFR 134; Globulin 3.8 g/dL (2.4-3.5); Glucose 106 mg/dL (70-105); Potassium 3.5 mmol/L (3.5-5.1); Protein, Total 6.6 g/dL (6.0-8.3); Sodium 142 mmol/L (136-145)
[2023-09-27 04:54] LABS: Anisocytosis SLIGHT = 6-15 cells HPF (0-5); Band 35 % (5-11); CellaVision Operator ID LAB.CLH1; Eosinophils 1 % (0-10); Hypochromia MODERATE=16-30 cells HPF (0-5); Lymphocytes 8 % (28-48); Macrocytosis SLIGHT = 6-15 cells HPF (0-5); Monocytes 5 % (0-4); Myelocyte 2 % (0-0); Neutrophil 47 % (31-61); Nucleated RBC (Manual Ct) 1 % (0); Platelet Adequacy Comment Platelets Normal; Polychromasia SLIGHT = 2-3 cells HPF (0-2); Promyelocytes 1 % (0-0); Reactive Lymphocytes 1 % (0-10); Total Cell Count 99
[2023-09-27] MEDS: Fentanyl CADD 100 ML IV SCH ×2 (06:53→17:41)
[2023-09-27 07:31] LABS: Actual Bicarbonate (HCO3a) 29.3 mEq/L (22-28); Base Excess (BEa) 5.7 mEq/L (-2.0 to +3.0); CO2 Tension 38.7 mmHg (35.0-45.0); Calcium, Ionized (arterial) 1.12 mmol/L (1.12-1.30); Carboxyhemoglobin (COHb) 0.3 gm% (0.0-3.0); Hematocrit-ABG 25 % (42.0-52.0); Hemoglobin (Hb) 8.6 g/dL (11.4-15.4); O2 Tension (PaO2), arterial 112.2 mmHg (80.0-100.0); Potassium - ABG Lab 3.44 mmol/L (3.70-5.30); pH, Arterial 7.497 (7.35-7.45)
[2023-09-27 07:35] LABS: ALV-art Gradient 338.525 mmHg (0-20); Puncture Site ALINE
[2023-09-27] MEDS: Senokot S 8.6-50 MG TAB PO SCH ×2 (08:07→20:11)
[2023-09-27] MEDS: levETIRAcetam 500 MG (5 mL) VIAL SLOW IVP SCH ×2 (08:07→20:11)
[2023-09-27] MEDS: Polyethylene Glycol 3350 17 GM Packet PO SCH (08:07)
[2023-09-27] MEDS: Potassium Chloride 20 MEQ in Premix 1 BAG IVPB SCH ×2 (08:14→10:12)
[2023-09-27] MEDS: Pantoprazole 40 MG VIAL IVP SCH ×2 (08:15→19:53)
[2023-09-27] MEDS: LevoFLOXacin 750 mg/D5W 750 MG in Premix 1 BAG IVPB SCH (10:11)
[2023-09-27] MEDS: Vecuronium 10 MG VIAL IVP PRN (14:21)
[2023-09-27] MEDS ORDERED: Bisacodyl 10 MG SUPP PR SCH (14:45)
[2023-09-27] MEDS: Labetalol HCl 100 MG/20 ML VIAL SLOW IVP PRN (19:56)
[2023-09-28] MEDS: Dexmedetomidine 1,000 MCG, Admixture Fee 1 EACH in Sodium Chloride 0.9% 250 ML 240 ML IVPB SCH ×3 (01:57→22:50)
[2023-09-28] MEDS: Propofol 1,000 MG/100 ML VIAL IV PRN ×6 (01:57→21:13)
[2023-09-28] MEDS: Fentanyl CADD 100 ML IV SCH ×3 (03:00→23:53)
[2023-09-28] MEDS: Acetaminophen 650 MG/20.3 ML UDCUP PER TUBE SCH ×4 (03:39→20:36)
[2023-09-28] MEDS: Labetalol HCl 100 MG/20 ML VIAL SLOW IVP PRN ×2 (04:09→06:11)
[2023-09-28] MEDS: Lactated Ringer's 1,000 ML IV SCH ×2 (04:21→15:45)
[2023-09-28 04:28] LABS: Hematocrit 27.6 % (42.0-52.0); Manual Diff?? YES; Mean Corpuscular HGB CONC 32.6 g/dL (32.0-36.0); Mean Corpuscular Hemoglobin 29.1 pg (25.0-35.0); Mean Corpuscular Volume 89.3 fl (78.0-98.0); Mean Platelet Volume 9.6 fL (7.4-10.4); Platelet Count 303 10x3/uL (130-400); RBC Distribution Width 12.5 % (11.5-14.5); Red Blood Cell (RBC) Count 3.09 mill/uL (4.00-5.20); White Blood Cell (WBC) Count 13.5 10x3/uL (4.8-10.8)
[2023-09-28 04:37] LABS: Delete Auto Diff?? YES
[2023-09-28 04:54] LABS: ALT (SGPT) 42 U/L (8-55); AST (SGOT) 39 U/L (5-34); Alkaline Phosphatase 195 U/L (50-130); Anion Gap 15 mmol/L (10-20); BUN (Urea Nitrogen) 15 mg/dL (8.9-20.6); Bilirubin, Total 1.6 mg/dL (0.2-1.2); Calc. Creatinine Clearance 204 mL/min (70-130); Carbon Dioxide 24 mmol/L (22-29); Chloride 104 mmol/L (98-107); Estimated GFR 132; Globulin 4.1 g/dL (2.4-3.5); Glucose 99 mg/dL (70-105); Protein, Total 7.1 g/dL (6.0-8.3); Sodium 139 mmol/L (136-145)
[2023-09-28 06:14] LABS: Band 5 % (5-11); CellaVision Operator ID lab.sh2; Lymphocytes 5 % (28-48); Metamyelocyte 12 % (0-0); Monocytes 11 % (0-4); Neutrophil 66 % (31-61); Platelet Adequacy Comment Platelets Normal; Polychromasia MODERATE = 3-4 cells HPF (0-2); Smudge Cells 10.1 %; Tear Drops SLIGHT = 2-5 cells HPF (0-1); Total Cell Count 99
[2023-09-28] MEDS: niCARdipine 50 MG, Admixture Fee 1 EACH in Sodium Chloride 0.9% 250 ML 230 ML IV SCH ×4 (06:26→22:51)
[2023-09-28 07:30] LABS: Actual Bicarbonate (HCO3a) 23.5 mEq/L (22-28); Base Excess (BEa) 0.4 mEq/L (-2.0 to +3.0); CO2 Tension 32.2 mmHg (35.0-45.0); Calcium, Ionized (arterial) 1.12 mmol/L (1.12-1.30); Carboxyhemoglobin (COHb) 0.2 gm% (0.0-3.0); Hematocrit-ABG 29 % (42.0-52.0); Hemoglobin (Hb) 9.7 g/dL (11.4-15.4); O2 Tension (PaO2), arterial 68.9 mmHg (80.0-100.0); Potassium - ABG Lab 3.67 mmol/L (3.70-5.30); Puncture Site ALINE; pH, Arterial 7.481 (7.35-7.45)
[2023-09-28] MEDS: Lorazepam 2 MG/ML VIAL SLOW IVP PRN ×3 (07:30→18:45)
[2023-09-28] MEDS: Metoclopramide HCl 10 MG (2 mL) VIAL IVP SCH ×2 (08:23→17:28)
[2023-09-28] MEDS: levETIRAcetam 500 MG (5 mL) VIAL SLOW IVP SCH ×2 (08:23→20:37)
[2023-09-28] MEDS: Vecuronium 10 MG VIAL IVP PRN (08:23)
[2023-09-28] MEDS: Senokot S 8.6-50 MG TAB PO SCH (08:23)
[2023-09-28] MEDS: Pantoprazole 40 MG VIAL IVP SCH ×2 (08:23→20:37)
[2023-09-28] MEDS: Polyethylene Glycol 3350 17 GM Packet PO SCH (08:23)
[2023-09-28 09:47] LABS: Bacteria/HPF None Seen HPF (None Seen); Bilirubin Negative (Negative); Blood, Urine 3+ (Negative); CAUTI Indications for Culture Fever or rigors; Clarity Turbid (Clear); Glucose, Urine (Dipstick) Normal (Negative); Ketone, Urine Negative (Negative); Leukocyte 25 Leu/uL (Negative); Nitrite Negative (Negative); Protein, Urine (Dipstick) 10 mg/dL (Neg-Trace); RBC/HPF Greater than 50 HPF (0-3); Specific Gravity, Urine 1.008 (1.002-1.036); Squamous Epithelial None Seen HPF (0-3); Urobilinogen Normal mg/dL (Less than 2)
[2023-09-28 09:49] LABS: Urine Culture Reflex No No
[2023-09-28] MEDS ORDERED: Vancomycin (BATCH) 2 GM in Premix 1 BAG IVPB SCH (10:00)
[2023-09-28] MEDS ORDERED: Lactulose 20 GM (30 mL) UDCUP PO PRN (10:14)
[2023-09-28] MEDS ORDERED: VANC IVPB PRN (10:31)
[2023-09-28] MEDS ORDERED: PROPOFOL 20 ML ONE (12:28)
[2023-09-28] MEDS ORDERED: Rocuronium Bromide 10 MG/ML (10ML VIAL) ONE ×2 (12:28→12:49)
[2023-09-28] MEDS ORDERED: Midazolam HCl 2 mg/2 ml Vial ONE (12:28)
[2023-09-28] MEDS ORDERED: PHENYLEPHRINE-NS 100 MCG/ML 10 ML SYRINGE ONE ×2 (12:49→13:13)
[2023-09-28] MEDS ORDERED: PROPOFOL 200 MG/20 ML VIAL ONE (12:49)
[2023-09-28] MEDS ORDERED: EPINEPHrine 1 MG/ML VIAL ONE (13:09)
[2023-09-28] MEDS ORDERED: Bupivacaine 0.25% HCL 30 ML VIAL ONE (13:09)
[2023-09-28 17:50] LABS: Bilirubin Negative (Negative); Blood, Urine 3+ (Negative); CAUTI Indications for Culture Fever or rigors; Clarity Turbid (Clear); Glucose, Urine (Dipstick) Normal (Negative); Ketone, Urine Negative (Negative); Leukocyte Negative Leu/uL (Negative); Nitrite Negative (Negative); Protein, Urine (Dipstick) 30 mg/dL (Neg-Trace); RBC/HPF Greater than 50 HPF (0-3); Specific Gravity, Urine 1.029 (1.002-1.036); Squamous Epithelial None Seen HPF (0-3); Urobilinogen Normal mg/dL (Less than 2); WBC/HPF 0-3 HPF (0-3)
[2023-09-28 18:02] LABS: Bacteria/HPF 2+ HPF (None Seen)
[2023-09-28 18:04] LABS: Urine Culture Reflex No No
[2023-09-28] MEDS: LevoFLOXacin 750 mg/D5W 750 MG in Premix 1 BAG IVPB SCH (19:47)
[2023-09-28] MEDS: Docusate 100 MG CAP PO SCH (20:37)
[2023-09-28] MEDS: Vancomycin (BATCH) 1.25 GM in Premix 1 BAG IVPB SCH (20:37)
[2023-09-29] MEDS ORDERED: Sterile Water 10 ML ONE ×2 (00:19→03:18)
[2023-09-29] MEDS: Lorazepam 2 MG/ML VIAL SLOW IVP PRN ×8 (00:20→16:26)
[2023-09-29] MEDS: Vecuronium 10 MG VIAL IVP PRN ×8 (00:23→16:26)
[2023-09-29] MEDS: Labetalol HCl 100 MG/20 ML VIAL SLOW IVP PRN (00:27)
[2023-09-29] MEDS: Metoclopramide HCl 10 MG (2 mL) VIAL IVP SCH ×3 (00:30→15:25)
[2023-09-29] MEDS: Propofol 1,000 MG/100 ML VIAL IV PRN ×2 (03:00→06:00)
[2023-09-29] MEDS: Lactated Ringer's 1,000 ML IV SCH ×2 (05:30→18:53)
[2023-09-29] MEDS: Acetaminophen 650 MG/20.3 ML UDCUP PER TUBE SCH ×4 (05:30→21:28)
[2023-09-29] MEDS: niCARdipine 50 MG, Admixture Fee 1 EACH in Sodium Chloride 0.9% 250 ML 230 ML IV SCH ×2 (05:30→13:54)
[2023-09-29] MEDS: Vancomycin (BATCH) 1.25 GM in Premix 1 BAG IVPB SCH ×3 (05:47→23:22)
[2023-09-29 06:08] LABS: Hematocrit 25.1 % (42.0-52.0); Hemoglobin 8.2 g/dL (14.0-18.0); Manual Diff?? YES; Mean Corpuscular HGB CONC 32.7 g/dL (32.0-36.0); Mean Corpuscular Hemoglobin 29.1 pg (25.0-35.0); Mean Platelet Volume 9.2 fL (7.4-10.4); Platelet Count 283 10x3/uL (130-400); RBC Distribution Width 12.4 % (11.5-14.5); Red Blood Cell (RBC) Count 2.82 mill/uL (4.00-5.20); White Blood Cell (WBC) Count 12.9 10x3/uL (4.8-10.8)
[2023-09-29 06:14] LABS: Delete Auto Diff?? YES
[2023-09-29 06:35] LABS: ALT (SGPT) 55 U/L (8-55); AST (SGOT) 52 U/L (5-34); Albumin 2.8 g/dL (3.5-5.0); Alkaline Phosphatase 256 U/L (50-130); Anion Gap 10 mmol/L (10-20); BUN (Urea Nitrogen) 15 mg/dL (8.9-20.6); Calc. Creatinine Clearance 209 mL/min (70-130); Calcium 8.4 mg/dL (7.8-10.44); Carbon Dioxide 25 mmol/L (22-29); Chloride 108 mmol/L (98-107); Estimated GFR 133; Globulin 3.7 g/dL (2.4-3.5); Glucose 109 mg/dL (70-105); Potassium 3.7 mmol/L (3.5-5.1); Protein, Total 6.5 g/dL (6.0-8.3); Sodium 139 mmol/L (136-145)
[2023-09-29 06:41] LABS: Band 18 % (5-11); CellaVision Operator ID LAB.CLH1; Hypochromia SLIGHT = 6-15 cells HPF (0-5); Large Platelets 3.9 % (0-5); Lymphocytes 4 % (28-48); Macrocytosis SLIGHT = 6-15 cells HPF (0-5); Metamyelocyte 1 % (0-0); Monocytes 4 % (0-4); Neutrophil 70 % (31-61); Platelet Adequacy Comment Platelets Normal; Polychromasia SLIGHT = 2-3 cells HPF (0-2); Reactive Lymphocytes 4 % (0-10); Total Cell Count 102
[2023-09-29 06:48] LABS: Actual Bicarbonate (HCO3a) 24.2 mEq/L (22-28); Base Excess (BEa) 1.1 mEq/L (-2.0 to +3.0); CO2 Tension 32.4 mmHg (35.0-45.0); Calcium, Ionized (arterial) 1.12 mmol/L (1.12-1.30); Carboxyhemoglobin (COHb) 0.6 gm% (0.0-3.0); Hematocrit-ABG 27 % (42.0-52.0); Hemoglobin (Hb) 9.1 g/dL (11.4-15.4); O2 Tension (PaO2), arterial 71.2 mmHg (80.0-100.0); Potassium - ABG Lab 3.69 mmol/L (3.70-5.30); pH, Arterial 7.491 (7.35-7.45)
[2023-09-29 06:49] LABS: Puncture Site Arterial Line
[2023-09-29] MEDS: Docusate 100 MG CAP PO SCH ×2 (08:33→21:29)
[2023-09-29] MEDS: Pantoprazole 40 MG VIAL IVP SCH ×2 (08:34→21:29)
[2023-09-29] MEDS: levETIRAcetam 500 MG (5 mL) VIAL SLOW IVP SCH ×2 (08:34→21:29)
[2023-09-29] MEDS: Polyethylene Glycol 3350 17 GM Packet PO SCH (08:34)
[2023-09-29] MEDS ORDERED: Iopamidol 370 76% 100 ML VIAL ONE (09:24)
[2023-09-29] MEDS: LevoFLOXacin 750 mg/D5W 750 MG in Premix 1 BAG IVPB SCH (09:56)
[2023-09-29] MEDS: Dexmedetomidine 1,000 MCG, Admixture Fee 1 EACH in Sodium Chloride 0.9% 250 ML 240 ML IVPB SCH ×2 (12:18→18:51)
[2023-09-29] MEDS ORDERED: Enoxaparin 40 MG (0.4 mL) SYRINGE SC SCH (12:30)
[2023-09-29] MEDS ORDERED: Propranolol 40 MG TAB PO SCH (14:00)
[2023-09-29] MEDS ORDERED: QUEtiapine 25 MG TAB PER TUBE SCH ×2 (14:00→21:00)
[2023-09-29] MEDS: Fentanyl CADD 100 ML IV SCH (15:23)
[2023-09-29 19:59] LABS: Vancomycin, Trough 7.2 ug/mL
[2023-09-29] MEDS ORDERED: Propranolol 10 MG TAB PER TUBE SCH (21:00)
[2023-09-29] MEDS: Propranolol 40 MG TAB PO SCH (21:29)
[2023-09-29] MEDS: QUEtiapine 25 MG TAB PER TUBE SCH (21:29)
[2023-09-29] MEDS: Vancomycin (BATCH) 1.75 GM in Premix 1 BAG IVPB SCH (21:29)
[2023-09-30] MEDS: Metoclopramide HCl 10 MG (2 mL) VIAL IVP SCH ×2 (01:06→11:43)
[2023-09-30] MEDS: Acetaminophen 650 MG/20.3 ML UDCUP PER TUBE SCH ×4 (02:41→20:49)
[2023-09-30] MEDS: Vancomycin (BATCH) 1.75 GM in Premix 1 BAG IVPB SCH ×3 (04:09→20:50)
[2023-09-30 04:32] LABS: Hematocrit 25.5 % (42.0-52.0); Hemoglobin 8.3 g/dL (14.0-18.0); Manual Diff?? YES; Mean Corpuscular HGB CONC 32.5 g/dL (32.0-36.0); Mean Corpuscular Hemoglobin 29.6 pg (25.0-35.0); Mean Corpuscular Volume 91.1 fl (78.0-98.0); Mean Platelet Volume 9.2 fL (7.4-10.4); Platelet Count 351 10x3/uL (130-400); White Blood Cell (WBC) Count 14.8 10x3/uL (4.8-10.8)
[2023-09-30 04:33] LABS: Delete Auto Diff?? YES
[2023-09-30 04:55] LABS: Anisocytosis SLIGHT = 6-15 cells HPF (0-5); Band 3 % (5-11); CellaVision Operator ID lab.sh2; Eosinophils 2 % (0-10); Lymphocytes 4 % (28-48); Monocytes 5 % (0-4); Neutrophil 86 % (31-61); Platelet Adequacy Comment Platelets Normal; Polychromasia SLIGHT = 2-3 cells HPF (0-2); Smudge Cells 13.1 %; Total Cell Count 99
[2023-09-30 04:57] LABS: ALT (SGPT) 64 U/L (8-55); AST (SGOT) 65 U/L (5-34); Albumin 2.9 g/dL (3.5-5.0); Alkaline Phosphatase 277 U/L (50-130); Anion Gap 11 mmol/L (10-20); BUN (Urea Nitrogen) 16 mg/dL (8.9-20.6); Bilirubin, Total 1.1 mg/dL (0.2-1.2); Calc. Creatinine Clearance 194 mL/min (70-130); Calcium 8.3 mg/dL (7.8-10.44); Carbon Dioxide 23 mmol/L (22-29); Chloride 109 mmol/L (98-107); Estimated GFR 132; Globulin 3.8 g/dL (2.4-3.5); Glucose 111 mg/dL (70-105); Potassium 3.6 mmol/L (3.5-5.1); Protein, Total 6.7 g/dL (6.0-8.3); Sodium 139 mmol/L (136-145)
[2023-09-30] MEDS: Lorazepam 2 MG/ML VIAL SLOW IVP PRN ×3 (06:28→22:35)
[2023-09-30] MEDS: Fentanyl CADD 100 ML IV SCH (07:46)
[2023-09-30 08:00] LABS: Actual Bicarbonate (HCO3a) 23.9 mEq/L (22-28); Base Excess (BEa) 1.4 mEq/L (-2.0 to +3.0); CO2 Tension 30.4 mmHg (35.0-45.0); Calcium, Ionized (arterial) 1.18 mmol/L (1.12-1.30); Carboxyhemoglobin (COHb) 0.6 gm% (0.0-3.0); Hematocrit-ABG 29 % (42.0-52.0); Hemoglobin (Hb) 9.8 g/dL (11.4-15.4); Potassium - ABG Lab 3.69 mmol/L (3.70-5.30); pH, Arterial 7.514 (7.35-7.45)
[2023-09-30] MEDS: Polyethylene Glycol 3350 17 GM Packet PO SCH (08:01)
[2023-09-30] MEDS: Docusate 100 MG CAP PO SCH (08:01)
[2023-09-30 08:04] LABS: Puncture Site RRA
[2023-09-30] MEDS: Dexmedetomidine 1,000 MCG, Admixture Fee 1 EACH in Sodium Chloride 0.9% 250 ML 240 ML IVPB SCH ×2 (08:19→18:54)
[2023-09-30] MEDS ORDERED: Polyethylene Glycol 3350 17 GM Packet PO PRN (09:14)
[2023-09-30] MEDS ORDERED: Docusate 100 MG CAP PO PRN (09:22)
[2023-09-30] MEDS: Pantoprazole 40 MG VIAL IVP SCH ×2 (09:34→20:50)
[2023-09-30] MEDS: levETIRAcetam 500 MG (5 mL) VIAL SLOW IVP SCH ×2 (09:34→20:49)
[2023-09-30] MEDS: QUEtiapine 25 MG TAB PER TUBE SCH ×2 (09:34→20:50)
[2023-09-30] MEDS: Propranolol 40 MG TAB PO SCH ×2 (09:34→20:50)
[2023-09-30] MEDS: Enoxaparin 40 MG (0.4 mL) SYRINGE SC SCH (09:34)
[2023-09-30] MEDS: Lactated Ringer's 1,000 ML IV SCH (11:43)
[2023-09-30] MEDS: Cefepime 2 GM in Sodium Chloride 0.9% 100 ML IVPB SCH ×2 (11:55→17:55)
[2023-09-30 20:13] LABS: Vancomycin, Trough 16.4 ug/mL
[2023-09-30] MEDS: Labetalol HCl 100 MG/20 ML VIAL SLOW IVP PRN (22:46)
[2023-10-01] MEDS: Fentanyl CADD 100 ML IV SCH ×2 (00:29→20:50)
[2023-10-01] MEDS: Acetaminophen 650 MG/20.3 ML UDCUP PER TUBE SCH ×4 (02:49→20:02)
[2023-10-01] MEDS: Cefepime 2 GM in Sodium Chloride 0.9% 100 ML IVPB SCH ×3 (02:49→18:30)
[2023-10-01] MEDS: Vancomycin (BATCH) 1.75 GM in Premix 1 BAG IVPB SCH ×2 (05:58→12:33)
[2023-10-01 07:10] LABS: #Eosinphils 0.1 thou/uL (0.0-0.7); #Monocytes 1.4 thou/uL (0.11-0.59); #Neutrophils 14.8 thou/uL (1.40-6.50); %Basophils 0.2 % (0.0-1.0); %Eosinophils 0.4 % (0.0-10.0); %Lymphocytes 8.8 % (28.0-48.0); %Monocytes 7.8 % (0.0-4.0); %Neutrophils 80.1 % (31.0-61.0); Hemoglobin 8.1 g/dL (14.0-18.0); Mean Corpuscular HGB CONC 32.4 g/dL (32.0-36.0); Mean Corpuscular Hemoglobin 29.8 pg (25.0-35.0); Mean Corpuscular Volume 91.9 fl (78.0-98.0); Mean Platelet Volume 9.6 fL (7.4-10.4); Platelet Count 430 10x3/uL (130-400); RBC Distribution Width 13.4 % (11.5-14.5); Red Blood Cell (RBC) Count 2.72 mill/uL (4.00-5.20); White Blood Cell (WBC) Count 18.5 10x3/uL (4.8-10.8)
[2023-10-01 07:21] LABS: ALT (SGPT) 70 U/L (8-55); AST (SGOT) 68 U/L (5-34); Albumin 2.6 g/dL (3.5-5.0); Alkaline Phosphatase 225 U/L (50-130); Anion Gap 12 mmol/L (10-20); BUN (Urea Nitrogen) 14 mg/dL (8.9-20.6); Bilirubin, Total 0.9 mg/dL (0.2-1.2); Calc. Creatinine Clearance 181 mL/min (70-130); Calcium 7.9 mg/dL (7.8-10.44); Carbon Dioxide 24 mmol/L (22-29); Chloride 110 mmol/L (98-107); Estimated GFR 130; Globulin 3.8 g/dL (2.4-3.5); Glucose 107 mg/dL (70-105); Potassium 3.7 mmol/L (3.5-5.1); Protein, Total 6.4 g/dL (6.0-8.3); Sodium 142 mmol/L (136-145)
[2023-10-01 08:02] LABS: Actual Bicarbonate (HCO3a) 23.5 mEq/L (22-28); Base Excess (BEa) 1.7 mEq/L (-2.0 to +3.0); CO2 Tension 26.8 mmHg (35.0-45.0); Carboxyhemoglobin (COHb) 0.7 gm% (0.0-3.0); Hematocrit-ABG 26 % (42.0-52.0); Hemoglobin (Hb) 8.8 g/dL (11.4-15.4); O2 Tension (PaO2), arterial 84.9 mmHg (80.0-100.0); Potassium - ABG Lab 3.43 mmol/L (3.70-5.30); pH, Arterial 7.561 (7.35-7.45)
[2023-10-01 08:03] LABS: Puncture Site RRA
[2023-10-01] MEDS: levETIRAcetam 500 MG (5 mL) VIAL SLOW IVP SCH ×2 (08:46→20:02)
[2023-10-01] MEDS: Enoxaparin 40 MG (0.4 mL) SYRINGE SC SCH (08:46)
[2023-10-01] MEDS: Pantoprazole 40 MG VIAL IVP SCH ×2 (08:47→20:02)
[2023-10-01] MEDS: Propranolol 40 MG TAB PO SCH ×2 (08:47→20:02)
[2023-10-01] MEDS: QUEtiapine 25 MG TAB PER TUBE SCH ×2 (08:47→20:03)
[2023-10-01] MEDS: Dexmedetomidine 1,000 MCG, Admixture Fee 1 EACH in Sodium Chloride 0.9% 250 ML 240 ML IVPB SCH ×2 (09:11→19:34)
[2023-10-01 12:18] LABS: CSF, Glucose 83 mg/dl (40-70); CSF, Protein 67 mg/dL (15-40)
[2023-10-01 12:42] LABS: CSF Source CSF; Tube # EDTA
[2023-10-01 12:43] LABS: Clarity Hazy (Clear)
[2023-10-01 13:09] LABS: Cell Count Non Hematic 40 %; Lymphocytes 6 %
[2023-10-01 13:16] LABS: Segmented Neutrophils 54 %
[2023-10-01 20:46] LABS: Vancomycin, Trough 10.5 ug/mL
[2023-10-01] MEDS: Lorazepam 2 MG/ML VIAL SLOW IVP PRN (20:50)
[2023-10-01] MEDS: Vancomycin (BATCH) 2 GM in Premix 1 BAG IVPB SCH (21:46)
[2023-10-02] MEDS: Cefepime 2 GM in Sodium Chloride 0.9% 100 ML IVPB SCH ×2 (02:59→09:37)
[2023-10-02] MEDS: Acetaminophen 650 MG/20.3 ML UDCUP PER TUBE SCH ×2 (03:00→09:36)
[2023-10-02 03:18] LABS: #Eosinphils 0.1 thou/uL (0.0-0.7); #Neutrophils 8.6 thou/uL (1.40-6.50); %Basophils 0.2 % (0.0-1.0); %Eosinophils 0.8 % (0.0-10.0); %Lymphocytes 12.2 % (28.0-48.0); %Monocytes 8.9 % (0.0-4.0); %Neutrophils 76.3 % (31.0-61.0); Hematocrit 22.1 % (42.0-52.0); Hemoglobin 7.2 g/dL (14.0-18.0); Mean Corpuscular HGB CONC 32.6 g/dL (32.0-36.0); Mean Corpuscular Hemoglobin 29.8 pg (25.0-35.0); Mean Corpuscular Volume 91.3 fl (78.0-98.0); Mean Platelet Volume 8.9 fL (7.4-10.4); Platelet Count 333 10x3/uL (130-400); RBC Distribution Width 13.7 % (11.5-14.5); Red Blood Cell (RBC) Count 2.42 mill/uL (4.00-5.20); White Blood Cell (WBC) Count 11.3 10x3/uL (4.8-10.8)
[2023-10-02 03:48] LABS: ALT (SGPT) 87 U/L (8-55); AST (SGOT) 76 U/L (5-34); Albumin 2.6 g/dL (3.5-5.0); Alkaline Phosphatase 188 U/L (50-130); Anion Gap 12 mmol/L (10-20); BUN (Urea Nitrogen) 17 mg/dL (8.9-20.6); Bilirubin, Total 0.7 mg/dL (0.2-1.2); Calc. Creatinine Clearance 198 mL/min (70-130); Calcium 7.9 mg/dL (7.8-10.44); Carbon Dioxide 24 mmol/L (22-29); Chloride 109 mmol/L (98-107); Estimated GFR 134; Globulin 3.6 g/dL (2.4-3.5); Glucose 107 mg/dL (70-105); Potassium 3.6 mmol/L (3.5-5.1); Protein, Total 6.2 g/dL (6.0-8.3); Sodium 141 mmol/L (136-145)
[2023-10-02] MEDS: Lorazepam 2 MG/ML VIAL SLOW IVP PRN ×2 (04:43→21:33)
[2023-10-02] MEDS: Vancomycin (BATCH) 2 GM in Premix 1 BAG IVPB SCH ×3 (06:02→13:30)
[2023-10-02] MEDS: Enoxaparin 40 MG (0.4 mL) SYRINGE SC SCH (09:37)
[2023-10-02] MEDS: QUEtiapine 25 MG TAB PER TUBE SCH ×2 (09:38→20:10)
[2023-10-02] MEDS: levETIRAcetam 500 MG (5 mL) VIAL SLOW IVP SCH ×2 (09:38→20:10)
[2023-10-02] MEDS: Pantoprazole 40 MG VIAL IVP SCH (09:38)
[2023-10-02] MEDS: Propranolol 40 MG TAB PO SCH ×2 (09:38→20:10)
[2023-10-02] MEDS: Dexmedetomidine 1,000 MCG, Admixture Fee 1 EACH in Sodium Chloride 0.9% 250 ML 240 ML IVPB SCH (13:23)
[2023-10-02] MEDS ORDERED: Vancomycin HCl 125 MG Capsule PO SCH (14:15)
[2023-10-02] MEDS ORDERED: Ketorolac Tromethamine 30 MG (1 mL) VIAL IVP SCH (14:45)
[2023-10-02] MEDS: Vancomycin HCl 125 MG/5 ML (BATCHED) UDCUP PER TUBE SCH ×2 (17:18→23:45)
[2023-10-02] MEDS: Nystatin 500,000 UNITS/5 ML UDCUP SSW SCH (20:10)
[2023-10-02] MEDS: Famotidine 20 MG TAB PER TUBE SCH (20:10)
[2023-10-02] MEDS: Fentanyl CADD 100 ML IV SCH (21:33)
[2023-10-03 04:35] LABS: #Eosinphils 0.1 thou/uL (0.0-0.7); #Monocytes 0.9 thou/uL (0.11-0.59); #Neutrophils 6.6 thou/uL (1.40-6.50); %Basophils 0.4 % (0.0-1.0); %Eosinophils 1.3 % (0.0-10.0); %Lymphocytes 15.4 % (28.0-48.0); %Monocytes 9.7 % (0.0-4.0); %Neutrophils 71.6 % (31.0-61.0); Hematocrit 23.5 % (42.0-52.0); Hemoglobin 7.4 g/dL (14.0-18.0); Mean Corpuscular HGB CONC 31.5 g/dL (32.0-36.0); Mean Corpuscular Hemoglobin 28.9 pg (25.0-35.0); Mean Corpuscular Volume 91.8 fl (78.0-98.0); Mean Platelet Volume 9.2 fL (7.4-10.4); Platelet Count 375 10x3/uL (130-400); RBC Distribution Width 14.1 % (11.5-14.5); Red Blood Cell (RBC) Count 2.56 mill/uL (4.00-5.20); White Blood Cell (WBC) Count 9.2 10x3/uL (4.8-10.8)
[2023-10-03 05:05] LABS: ALT (SGPT) 91 U/L (8-55); AST (SGOT) 75 U/L (5-34); Albumin 2.7 g/dL (3.5-5.0); Alkaline Phosphatase 167 U/L (50-130); Anion Gap 10 mmol/L (10-20); BUN (Urea Nitrogen) 19 mg/dL (8.9-20.6); Bilirubin, Total 0.7 mg/dL (0.2-1.2); Calc. Creatinine Clearance 196 mL/min (70-130); Carbon Dioxide 26 mmol/L (22-29); Chloride 109 mmol/L (98-107); Estimated GFR 133; Globulin 3.7 g/dL (2.4-3.5); Glucose 109 mg/dL (70-105); Potassium 3.6 mmol/L (3.5-5.1); Protein, Total 6.4 g/dL (6.0-8.3); Sodium 141 mmol/L (136-145)
[2023-10-03] MEDS: Vancomycin HCl 125 MG/5 ML (BATCHED) UDCUP PER TUBE SCH ×4 (05:40→23:22)
[2023-10-03] MEDS ORDERED: hydrALAZINE 20 MG/ML VIAL SLOW IVP PRN (05:47)
[2023-10-03] MEDS: Dexmedetomidine 1,000 MCG, Admixture Fee 1 EACH in Sodium Chloride 0.9% 250 ML 240 ML IVPB SCH ×2 (05:53→14:34)
[2023-10-03] MEDS: Lorazepam 2 MG/ML VIAL SLOW IVP PRN (09:30)
[2023-10-03] MEDS: Labetalol HCl 100 MG/20 ML VIAL SLOW IVP PRN ×2 (09:30→14:54)
[2023-10-03] MEDS: Enoxaparin 40 MG (0.4 mL) SYRINGE SC SCH (10:58)
[2023-10-03] MEDS: Propranolol 40 MG TAB PO SCH ×2 (10:59→20:12)
[2023-10-03] MEDS: Nystatin 500,000 UNITS/5 ML UDCUP SSW SCH ×4 (10:59→20:12)
[2023-10-03] MEDS: QUEtiapine 25 MG TAB PER TUBE SCH ×2 (10:59→20:12)
[2023-10-03] MEDS: Famotidine 20 MG TAB PER TUBE SCH ×2 (10:59→20:12)
[2023-10-03] MEDS: levETIRAcetam 500 MG (5 mL) VIAL SLOW IVP SCH ×2 (10:59→20:12)
[2023-10-03] MEDS: Acetaminophen 650 MG/20.3 ML UDCUP PO PRN (11:00)
[2023-10-03] MEDS: Fentanyl CADD 100 ML IV SCH (19:38)
[2023-10-03 22:35] LABS: Campy jejuni + coli by PCR Negative (Negative); STEC Shiga Toxin 1+2 Negative (Negative); Salmonella spp. by PCR Negative (Negative); Shigella spp + EIEC by PCR Negative (Negative)
[2023-10-04 04:48] LABS: #Eosinphils 0.1 thou/uL (0.0-0.7); #Monocytes 0.9 thou/uL (0.11-0.59); #Neutrophils 5.5 thou/uL (1.40-6.50); %Basophils 0.5 % (0.0-1.0); %Eosinophils 0.7 % (0.0-10.0); %Monocytes 11.3 % (0.0-4.0); %Neutrophils 66.2 % (31.0-61.0); Hematocrit 23.7 % (42.0-52.0); Hemoglobin 7.6 g/dL (14.0-18.0); Mean Corpuscular HGB CONC 32.1 g/dL (32.0-36.0); Mean Corpuscular Hemoglobin 30.2 pg (25.0-35.0); Mean Platelet Volume 9.5 fL (7.4-10.4); Platelet Count 442 10x3/uL (130-400); RBC Distribution Width 15.5 % (11.5-14.5); Red Blood Cell (RBC) Count 2.52 mill/uL (4.00-5.20); White Blood Cell (WBC) Count 8.3 10x3/uL (4.8-10.8)
[2023-10-04] MEDS: Vancomycin HCl 125 MG/5 ML (BATCHED) UDCUP PER TUBE SCH ×4 (05:09→23:25)
[2023-10-04 05:15] LABS: ALT (SGPT) 99 U/L (8-55); AST (SGOT) 69 U/L (5-34); Albumin 3.1 g/dL (3.5-5.0); Alkaline Phosphatase 156 U/L (50-130); Anion Gap 11 mmol/L (10-20); BUN (Urea Nitrogen) 23 mg/dL (8.9-20.6); Bilirubin, Total 0.7 mg/dL (0.2-1.2); Calc. Creatinine Clearance 168 mL/min (70-130); Calcium 8.2 mg/dL (7.8-10.44); Carbon Dioxide 24 mmol/L (22-29); Chloride 109 mmol/L (98-107); Estimated GFR 127; Globulin 3.6 g/dL (2.4-3.5); Glucose 99 mg/dL (70-105); Potassium 3.6 mmol/L (3.5-5.1); Protein, Total 6.7 g/dL (6.0-8.3); Sodium 140 mmol/L (136-145)
[2023-10-04] MEDS: Enoxaparin 40 MG (0.4 mL) SYRINGE SC SCH (10:01)
[2023-10-04] MEDS: levETIRAcetam 500 MG (5 mL) VIAL SLOW IVP SCH ×2 (10:01→20:52)
[2023-10-04] MEDS: Nystatin 500,000 UNITS/5 ML UDCUP SSW SCH ×4 (10:01→20:52)
[2023-10-04] MEDS: Famotidine 20 MG TAB PER TUBE SCH ×2 (10:02→20:53)
[2023-10-04] MEDS: Propranolol 40 MG TAB PO SCH ×2 (10:02→20:53)
[2023-10-04] MEDS: QUEtiapine 25 MG TAB PER TUBE SCH ×2 (10:02→20:53)
[2023-10-04] MEDS: Dexmedetomidine 1,000 MCG, Admixture Fee 1 EACH in Sodium Chloride 0.9% 250 ML 240 ML IVPB SCH (10:05)
[2023-10-04] MEDS: Labetalol HCl 100 MG/20 ML VIAL SLOW IVP PRN (10:38)
[2023-10-04] MEDS: Fentanyl CADD 100 ML IV SCH (19:02)
[2023-10-04] MEDS: Acetaminophen 650 MG/20.3 ML UDCUP PO PRN (21:01)
[2023-10-05] MEDS: Dexmedetomidine 1,000 MCG, Admixture Fee 1 EACH in Sodium Chloride 0.9% 250 ML 240 ML IVPB SCH ×2 (02:24→15:32)
[2023-10-05 04:07] LABS: #Basophils 0.1 thou/uL (0.0-0.2); #Eosinphils 0.1 thou/uL (0.0-0.7); #Monocytes 1.1 thou/uL (0.11-0.59); #Neutrophils 6.9 thou/uL (1.40-6.50); %Basophils 0.5 % (0.0-1.0); %Eosinophils 0.7 % (0.0-10.0); %Lymphocytes 19.5 % (28.0-48.0); %Monocytes 10.9 % (0.0-4.0); %Neutrophils 67.5 % (31.0-61.0); Hematocrit 25.2 % (42.0-52.0); Hemoglobin 7.9 g/dL (14.0-18.0); Mean Corpuscular HGB CONC 31.3 g/dL (32.0-36.0); Mean Corpuscular Hemoglobin 29.6 pg (25.0-35.0); Mean Corpuscular Volume 94.4 fl (78.0-98.0); Mean Platelet Volume 9.6 fL (7.4-10.4); Platelet Count 489 10x3/uL (130-400); RBC Distribution Width 16.6 % (11.5-14.5); Red Blood Cell (RBC) Count 2.67 mill/uL (4.00-5.20); White Blood Cell (WBC) Count 10.3 10x3/uL (4.8-10.8)
[2023-10-05 04:32] LABS: ALT (SGPT) 156 U/L (8-55); AST (SGOT) 101 U/L (5-34); Albumin 3.2 g/dL (3.5-5.0); Alkaline Phosphatase 159 U/L (50-130); Anion Gap 13 mmol/L (10-20); BUN (Urea Nitrogen) 22 mg/dL (8.9-20.6); Calc. Creatinine Clearance 167 mL/min (70-130); Calcium 8.5 mg/dL (7.8-10.44); Carbon Dioxide 24 mmol/L (22-29); Chloride 109 mmol/L (98-107); Estimated GFR 128; Glucose 95 mg/dL (70-105); Potassium 3.8 mmol/L (3.5-5.1); Protein, Total 7.2 g/dL (6.0-8.3); Sodium 142 mmol/L (136-145)
[2023-10-05] MEDS: Vancomycin HCl 125 MG/5 ML (BATCHED) UDCUP PER TUBE SCH ×4 (05:13→23:07)
[2023-10-05] MEDS ORDERED: clonazePAM 0.5 MG TAB PO PRN (08:13)
[2023-10-05 09:29] LABS: Actual Bicarbonate (HCO3a) 23.6 mEq/L (22-28); Base Excess (BEa) 1.5 mEq/L (-2.0 to +3.0); CO2 Tension 28.7 mmHg (35.0-45.0); Calcium, Ionized (arterial) 1.14 mmol/L (1.12-1.30); Carboxyhemoglobin (COHb) 0.2 gm% (0.0-3.0); Hematocrit-ABG 29 % (42.0-52.0); O2 Tension (PaO2), arterial 63.4 mmHg (80.0-100.0); Potassium - ABG Lab 4.01 mmol/L (3.70-5.30); pH, Arterial 7.533 (7.35-7.45)
[2023-10-05 09:31] LABS: Puncture Site Right Brachial
[2023-10-05 09:32] LABS: ALV-art Gradient 185.925 mmHg (0-20)
[2023-10-05] MEDS: fentaNYL 25 mcg Patch TD SCH (09:39)
[2023-10-05] MEDS: Nystatin 500,000 UNITS/5 ML UDCUP SSW SCH ×4 (09:40→21:17)
[2023-10-05] MEDS: Propranolol 40 MG TAB PO SCH ×2 (09:41→21:18)
[2023-10-05] MEDS: Famotidine 20 MG TAB PER TUBE SCH ×2 (09:41→21:18)
[2023-10-05] MEDS: Enoxaparin 40 MG (0.4 mL) SYRINGE SC SCH (09:41)
[2023-10-05] MEDS: levETIRAcetam 500 MG (5 mL) VIAL SLOW IVP SCH ×2 (09:41→21:17)
[2023-10-05] MEDS: QUEtiapine 25 MG TAB PER TUBE SCH ×2 (09:42→21:18)
[2023-10-05] MEDS: Acetaminophen 650 MG/20.3 ML UDCUP PO PRN (22:06)
[2023-10-05] MEDS ORDERED: Fentanyl CADD 100 ML IV SCH (22:30)
[2023-10-06] MEDS: Vancomycin HCl 125 MG/5 ML (BATCHED) UDCUP PER TUBE SCH ×3 (04:43→16:01)
[2023-10-06 06:04] LABS: ALT (SGPT) 202 U/L (8-55); AST (SGOT) 114 U/L (5-34); Albumin 3.7 g/dL (3.5-5.0); Alkaline Phosphatase 187 U/L (50-130); Anion Gap 16 mmol/L (10-20); BUN (Urea Nitrogen) 30 mg/dL (8.9-20.6); Bilirubin, Total 1.2 mg/dL (0.2-1.2); Calc. Creatinine Clearance 125 mL/min (70-130); Carbon Dioxide 22 mmol/L (22-29); Chloride 108 mmol/L (98-107); Estimated GFR 107; Globulin 4.7 g/dL (2.4-3.5); Glucose 108 mg/dL (70-105); Potassium 4.4 mmol/L (3.5-5.1); Protein, Total 8.4 g/dL (6.0-8.3); Sodium 142 mmol/L (136-145)
[2023-10-06] MEDS: Acetaminophen 650 MG/20.3 ML UDCUP PO PRN ×3 (06:41→16:00)
[2023-10-06 08:34] LABS: Actual Bicarbonate (HCO3a) 23.1 mEq/L (22-28); Base Excess (BEa) -0.1 mEq/L (-2.0 to +3.0); CO2 Tension 32.2 mmHg (35.0-45.0); Calcium, Ionized (arterial) 1.18 mmol/L (1.12-1.30); Carboxyhemoglobin (COHb) 0.4 gm% (0.0-3.0); Hematocrit-ABG 29 % (42.0-52.0); Hemoglobin (Hb) 9.7 g/dL (11.4-15.4); O2 Tension (PaO2), arterial 101.8 mmHg (80.0-100.0); Potassium - ABG Lab 3.78 mmol/L (3.70-5.30); pH, Arterial 7.473 (7.35-7.45)
[2023-10-06 08:36] LABS: Puncture Site Right Radial
[2023-10-06] MEDS: Enoxaparin 40 MG (0.4 mL) SYRINGE SC SCH (09:45)
[2023-10-06] MEDS: Nystatin 500,000 UNITS/5 ML UDCUP SSW SCH ×4 (09:45→21:01)
[2023-10-06] MEDS: Famotidine 20 MG TAB PER TUBE SCH ×2 (09:46→21:01)
[2023-10-06] MEDS: levETIRAcetam 500 MG (5 mL) VIAL SLOW IVP SCH ×2 (09:46→21:01)
[2023-10-06] MEDS: QUEtiapine 25 MG TAB PER TUBE SCH ×2 (09:50→21:01)
[2023-10-06] MEDS: Propranolol 40 MG TAB PO SCH ×2 (09:50→21:01)
[2023-10-06] MEDS: Morphine 2 MG/ML VIAL SLOW IVP PRN (19:47)
[2023-10-06] MEDS ORDERED: Morphine 4 MG/ML VIAL SLOW IVP SCH (21:00)
[2023-10-06] MEDS ORDERED: Sodium Bicarbonate Tab 325 MG TAB PER TUBE PRN (22:30)
[2023-10-06] MEDS ORDERED: Pancrelipase DR 12,000 1 CAP FS PRN (22:30)
[2023-10-06] MEDS: Dexmedetomidine 1,000 MCG, Admixture Fee 1 EACH in Sodium Chloride 0.9% 250 ML 240 ML IVPB SCH (23:13)
[2023-10-07] MEDS: Acetaminophen 650 MG/20.3 ML UDCUP PO PRN ×5 (00:02→19:53)
[2023-10-07] MEDS: Vancomycin HCl 125 MG/5 ML (BATCHED) UDCUP PER TUBE SCH ×5 (00:03→22:58)
[2023-10-07] MEDS: Morphine 2 MG/ML VIAL SLOW IVP PRN ×3 (04:53→19:54)
[2023-10-07 06:35] LABS: #Basophils 0.1 thou/uL (0.0-0.2); #Monocytes 1.6 thou/uL (0.11-0.59); #Neutrophils 13.2 thou/uL (1.40-6.50); %Basophils 0.4 % (0.0-1.0); %Eosinophils 0.1 % (0.0-10.0); %Lymphocytes 7.4 % (28.0-48.0); %Monocytes 9.9 % (0.0-4.0); %Neutrophils 81.6 % (31.0-61.0); Hematocrit 33.1 % (42.0-52.0); Hemoglobin 10.7 g/dL (14.0-18.0); Mean Corpuscular HGB CONC 32.3 g/dL (32.0-36.0); Mean Corpuscular Hemoglobin 30.1 pg (25.0-35.0); Mean Platelet Volume 9.5 fL (7.4-10.4); Platelet Count 686 10x3/uL (130-400); RBC Distribution Width 17.8 % (11.5-14.5); Red Blood Cell (RBC) Count 3.56 mill/uL (4.00-5.20); White Blood Cell (WBC) Count 16.2 10x3/uL (4.8-10.8)
[2023-10-07] MEDS ORDERED: Piperacillin/Tazobactam 3.375 GM in Sodium Chloride 0.9% 100 ML IVPB SCH ×3 (07:45→12:00)
[2023-10-07] MEDS: Nystatin 500,000 UNITS/5 ML UDCUP SSW SCH ×4 (08:09→19:53)
[2023-10-07] MEDS: Saccharomyces boulardii 250 MG CAP PO SCH (08:09)
[2023-10-07] MEDS: Famotidine 20 MG TAB PER TUBE SCH ×2 (08:09→19:53)
[2023-10-07] MEDS: levETIRAcetam 500 MG (5 mL) VIAL SLOW IVP SCH ×2 (08:09→19:53)
[2023-10-07] MEDS: Propranolol 40 MG TAB PO SCH ×2 (08:09→19:54)
[2023-10-07] MEDS: QUEtiapine 25 MG TAB PER TUBE SCH ×2 (08:09→19:54)
[2023-10-07] MEDS: Enoxaparin 40 MG (0.4 mL) SYRINGE SC SCH (08:09)
[2023-10-07] MEDS ORDERED: Dexmedetomidine In 0.9 % NaCl 100 ML IVPB SCH (08:30)
[2023-10-07 08:45] LABS: Albumin 4.1 g/dL (3.5-5.0); Anion Gap 17 mmol/L (10-20); Calcium 9.8 mg/dL (7.8-10.44); Carbon Dioxide 21 mmol/L (22-29); Chloride 111 mmol/L (98-107); Globulin 5.3 g/dL (2.4-3.5); Glucose 121 mg/dL (70-105); Potassium 3.9 mmol/L (3.5-5.1); Protein, Total 9.4 g/dL (6.0-8.3); Sodium 145 mmol/L (136-145)
[2023-10-07] MEDS ORDERED: Amantadine HCl 100 mg Capsule PO SCH (09:00)
[2023-10-07] MEDS ORDERED: Vancomycin (BATCH) 1.5 GM in Premix 1 BAG IVPB SCH ×2 (09:00→20:00)
[2023-10-07 09:09] LABS: ALT (SGPT) 216 U/L (8-55); AST (SGOT) 103 U/L (5-34); Alkaline Phosphatase 186 U/L (50-130); BUN (Urea Nitrogen) 27 mg/dL (8.9-20.6); Calc. Creatinine Clearance 137 mL/min (70-130); Estimated GFR 126
[2023-10-07] MEDS: Amantadine HCl 100 mg Capsule PO SCH ×2 (09:20→19:53)
[2023-10-07] MEDS ORDERED: CEFAZOLIN 1 GM in Sodium Chloride 0.9% 100 ML IVPB SCH (14:00)
[2023-10-07] MEDS ORDERED: CEFAZOLIN 1 GM VIAL SLOW IVP SCH (14:00)
[2023-10-07] MEDS: Scopolamine 1 mg/72 hour Patch TOP SCH (14:25)
[2023-10-07] MEDS: Vancomycin (BATCH) 1.5 GM in Premix 1 BAG IVPB SCH (19:52)
[2023-10-07] MEDS ORDERED: Vancomycin (BATCH) 1.25 GM in Premix 1 BAG IVPB SCH (20:00)
[2023-10-08] MEDS: Vancomycin (BATCH) 1.5 GM in Premix 1 BAG IVPB SCH ×2 (04:34→13:05)
[2023-10-08 05:37] LABS: #Basophils 0.1 thou/uL (0.0-0.2); #Eosinphils 0.1 thou/uL (0.0-0.7); #Neutrophils 7.3 thou/uL (1.40-6.50); %Basophils 0.6 % (0.0-1.0); %Eosinophils 1.3 % (0.0-10.0); %Lymphocytes 13.1 % (28.0-48.0); %Monocytes 9.8 % (0.0-4.0); %Neutrophils 74.7 % (31.0-61.0); Hemoglobin 9.5 g/dL (14.0-18.0); Mean Corpuscular HGB CONC 30.6 g/dL (32.0-36.0); Mean Platelet Volume 10.5 fL (7.4-10.4); Red Blood Cell (RBC) Count 3.17 mill/uL (4.00-5.20); White Blood Cell (WBC) Count 9.8 10x3/uL (4.8-10.8)
[2023-10-08] MEDS: Vancomycin HCl 125 MG/5 ML (BATCHED) UDCUP PER TUBE SCH ×4 (05:45→23:21)
[2023-10-08 06:02] LABS: ALT (SGPT) 188 U/L (8-55); AST (SGOT) 93 U/L (5-34); Albumin 4.1 g/dL (3.5-5.0); Alkaline Phosphatase 167 U/L (50-130); Anion Gap 12 mmol/L (10-20); BUN (Urea Nitrogen) 28 mg/dL (8.9-20.6); Bilirubin, Total 0.9 mg/dL (0.2-1.2); Calc. Creatinine Clearance 144 mL/min (70-130); Calcium 9.1 mg/dL (7.8-10.44); Carbon Dioxide 24 mmol/L (22-29); Chloride 112 mmol/L (98-107); Estimated GFR 128; Globulin 4.9 g/dL (2.4-3.5); Glucose 112 mg/dL (70-105); Potassium 3.7 mmol/L (3.5-5.1); Sodium 144 mmol/L (136-145)
[2023-10-08 06:04] LABS: Mean Corpuscular Volume 97.8 fl (78.0-98.0); Platelet Count 547 10x3/uL (130-400)
[2023-10-08] MEDS: fentaNYL 25 mcg Patch TD SCH (08:00)
[2023-10-08] MEDS: Enoxaparin 40 MG (0.4 mL) SYRINGE SC SCH (08:00)
[2023-10-08] MEDS: Amantadine HCl 100 mg Capsule PO SCH ×2 (08:01→20:13)
[2023-10-08] MEDS: Morphine 2 MG/ML VIAL SLOW IVP PRN (08:01)
[2023-10-08] MEDS: Propranolol 40 MG TAB PO SCH ×2 (08:01→20:14)
[2023-10-08] MEDS: QUEtiapine 25 MG TAB PER TUBE SCH ×2 (08:01→20:12)
[2023-10-08] MEDS: Saccharomyces boulardii 250 MG CAP PO SCH (08:01)
[2023-10-08] MEDS: Nystatin 500,000 UNITS/5 ML UDCUP SSW SCH ×4 (08:01→21:11)
[2023-10-08] MEDS: levETIRAcetam 500 MG (5 mL) VIAL SLOW IVP SCH ×2 (08:01→20:14)
[2023-10-08] MEDS: Famotidine 20 MG TAB PER TUBE SCH ×2 (08:01→20:13)
[2023-10-08 11:32] LABS: Vancomycin, Trough 17.6 ug/mL
[2023-10-08] MEDS: Vancomycin 1 GM in Premix 1 BAG IVPB SCH ×2 (12:42→21:13)
[2023-10-08] MEDS ORDERED: Vancomycin 1 GM/200 ML (FROZEN) BAG ONE (19:37)
[2023-10-08] MEDS: Acetaminophen 650 MG/20.3 ML UDCUP PO PRN (21:08)
[2023-10-09] MEDS: Acetaminophen 650 MG/20.3 ML UDCUP PO PRN ×4 (00:49→18:11)
[2023-10-09] MEDS: Morphine 2 MG/ML VIAL SLOW IVP PRN (00:57)
[2023-10-09] MEDS: Vancomycin 1 GM in Premix 1 BAG IVPB SCH ×3 (04:03→22:04)
[2023-10-09 04:25] LABS: #Eosinphils 0.2 thou/uL (0.0-0.7); #Monocytes 0.8 thou/uL (0.11-0.59); #Neutrophils 5.7 thou/uL (1.40-6.50); %Basophils 0.5 % (0.0-1.0); %Eosinophils 2.2 % (0.0-10.0); %Lymphocytes 13.5 % (28.0-48.0); %Monocytes 10.1 % (0.0-4.0); %Neutrophils 73.4 % (31.0-61.0); Hematocrit 31.8 % (42.0-52.0); Hemoglobin 9.8 g/dL (14.0-18.0); Mean Corpuscular HGB CONC 30.8 g/dL (32.0-36.0); Mean Corpuscular Hemoglobin 29.6 pg (25.0-35.0); Mean Corpuscular Volume 96.1 fl (78.0-98.0); Mean Platelet Volume 10.1 fL (7.4-10.4); RBC Distribution Width 17.8 % (11.5-14.5); Red Blood Cell (RBC) Count 3.31 mill/uL (4.00-5.20); White Blood Cell (WBC) Count 7.8 10x3/uL (4.8-10.8)
[2023-10-09 04:30] LABS: Platelet Count 442 10x3/uL (130-400)
[2023-10-09 04:53] LABS: ALT (SGPT) 288 U/L (8-55); AST (SGOT) 181 U/L (5-34); Albumin 4.1 g/dL (3.5-5.0); Alkaline Phosphatase 166 U/L (50-130); Anion Gap 14 mmol/L (10-20); BUN (Urea Nitrogen) 30 mg/dL (8.9-20.6); Bilirubin, Total 0.6 mg/dL (0.2-1.2); Calc. Creatinine Clearance 154 mL/min (70-130); Carbon Dioxide 21 mmol/L (22-29); Chloride 112 mmol/L (98-107); Estimated GFR 131; Globulin 4.6 g/dL (2.4-3.5); Glucose 124 mg/dL (70-105); Potassium 3.6 mmol/L (3.5-5.1); Protein, Total 8.7 g/dL (6.0-8.3); Sodium 143 mmol/L (136-145)
[2023-10-09] MEDS: Vancomycin HCl 125 MG/5 ML (BATCHED) UDCUP PER TUBE SCH ×3 (06:12→17:35)
[2023-10-09] MEDS: Nystatin 500,000 UNITS/5 ML UDCUP SSW SCH ×4 (09:27→22:01)
[2023-10-09] MEDS: Enoxaparin 40 MG (0.4 mL) SYRINGE SC SCH (09:27)
[2023-10-09] MEDS: Saccharomyces boulardii 250 MG CAP PO SCH (09:27)
[2023-10-09] MEDS: levETIRAcetam 500 MG (5 mL) VIAL SLOW IVP SCH ×2 (09:27→22:01)
[2023-10-09] MEDS: QUEtiapine 25 MG TAB PER TUBE SCH ×2 (09:28→22:00)
[2023-10-09] MEDS: Famotidine 20 MG TAB PER TUBE SCH ×2 (09:28→22:00)
[2023-10-09] MEDS: Propranolol 40 MG TAB PO SCH ×2 (09:28→22:01)
[2023-10-09] MEDS: Amantadine HCl 100 mg Capsule PO SCH ×2 (09:28→22:01)
[2023-10-09 09:43] LABS: Actual Bicarbonate (HCO3a) 18.4 mEq/L (22-28); Analyzer IN Cardio OR; CO2 Tension 32.7 mmHg (35.0-45.0); Carboxyhemoglobin (COHb) 0.3 gm% (0.0-3.0); Hematocrit-ABG 35 % (42.0-52.0); O2 Tension (PaO2), arterial 354.8 mmHg (80.0-100.0); Potassium - ABG Lab 3.94 mmol/L (3.70-5.30); pH, Arterial 7.367 (7.35-7.45)
[2023-10-09 13:28] LABS: Vancomycin, Trough 15.1 ug/mL
[2023-10-10] MEDS: Acetaminophen 650 MG/20.3 ML UDCUP PO PRN ×2 (00:33→04:12)
[2023-10-10] MEDS: Vancomycin 1 GM in Premix 1 BAG IVPB SCH ×3 (04:11→21:35)
[2023-10-10] MEDS: Vancomycin HCl 125 MG/5 ML (BATCHED) UDCUP PER TUBE SCH ×5 (04:13→23:56)
[2023-10-10 06:14] LABS: #Eosinphils 0.2 thou/uL (0.0-0.7); #Monocytes 0.5 thou/uL (0.11-0.59); #Neutrophils 3.5 thou/uL (1.40-6.50); %Basophils 0.6 % (0.0-1.0); %Eosinophils 3.4 % (0.0-10.0); %Monocytes 9.3 % (0.0-4.0); %Neutrophils 65.3 % (31.0-61.0); Hematocrit 32.1 % (42.0-52.0); Hemoglobin 9.7 g/dL (14.0-18.0); Mean Corpuscular HGB CONC 30.2 g/dL (32.0-36.0); Mean Corpuscular Volume 99.4 fl (78.0-98.0); Mean Platelet Volume 11.1 fL (7.4-10.4); Platelet Count 244 10x3/uL (130-400); RBC Distribution Width 17.2 % (11.5-14.5); Red Blood Cell (RBC) Count 3.23 mill/uL (4.00-5.20); White Blood Cell (WBC) Count 5.4 10x3/uL (4.8-10.8)
[2023-10-10 06:36] LABS: ALT (SGPT) 277 U/L (8-55); AST (SGOT) 113 U/L (5-34); Albumin 3.9 g/dL (3.5-5.0); Alkaline Phosphatase 161 U/L (50-130); Anion Gap 14 mmol/L (10-20); BUN (Urea Nitrogen) 24 mg/dL (8.9-20.6); Bilirubin, Total 0.7 mg/dL (0.2-1.2); Calc. Creatinine Clearance 166 mL/min (70-130); Carbon Dioxide 26 mmol/L (22-29); Chloride 108 mmol/L (98-107); Estimated GFR 134; Globulin 4.9 g/dL (2.4-3.5); Glucose 104 mg/dL (70-105); Potassium 3.8 mmol/L (3.5-5.1); Protein, Total 8.8 g/dL (6.0-8.3); Sodium 144 mmol/L (136-145)
[2023-10-10] MEDS: Amantadine HCl 100 mg Capsule PO SCH ×2 (09:37→21:34)
[2023-10-10] MEDS: Enoxaparin 40 MG (0.4 mL) SYRINGE SC SCH (09:37)
[2023-10-10] MEDS: Propranolol 40 MG TAB PO SCH ×2 (09:37→21:34)
[2023-10-10] MEDS: levETIRAcetam 500 MG (5 mL) VIAL SLOW IVP SCH ×2 (09:37→21:34)
[2023-10-10] MEDS: Saccharomyces boulardii 250 MG CAP PO SCH (09:37)
[2023-10-10] MEDS: QUEtiapine 25 MG TAB PER TUBE SCH ×2 (09:37→21:34)
[2023-10-10] MEDS: Nystatin 500,000 UNITS/5 ML UDCUP SSW SCH ×4 (09:37→21:34)
[2023-10-10] MEDS: Famotidine 20 MG TAB PER TUBE SCH ×2 (09:37→21:36)
[2023-10-10] MEDS: Scopolamine 1 mg/72 hour Patch TOP SCH (12:46)
[2023-10-10 16:31] LABS: Vancomycin, Random 20.7 ug/mL (See Comment)
[2023-10-10] MEDS ORDERED: Protamine Sulfate 50 MG/5 ML VIAL SLOW IVP SCH (20:45)
[2023-10-10] MEDS ORDERED: Lidocaine 1% w/Epinephrine 1:100K 20 ML VIAL FS SCH (21:15)
[2023-10-10] MEDS ORDERED: Lidocaine 1% w/Epinephrine 1:200K 30 ML VIAL FS SCH (21:15)
[2023-10-10 21:58] LABS: INR-International Normal Ratio 1.1; PTT 26.5 sec (22.9-36.1); Prothrombin Time 14.2 sec (12.0-14.7)
[2023-10-11] MEDS: Vancomycin 1 GM in Premix 1 BAG IVPB SCH ×2 (04:51→12:49)
[2023-10-11] MEDS: Vancomycin HCl 125 MG/5 ML (BATCHED) UDCUP PER TUBE SCH ×4 (04:51→23:55)
[2023-10-11 05:25] LABS: #Eosinphils 0.1 thou/uL (0.0-0.7); #Monocytes 0.5 thou/uL (0.11-0.59); #Neutrophils 4.8 thou/uL (1.40-6.50); %Basophils 0.5 % (0.0-1.0); %Eosinophils 1.8 % (0.0-10.0); %Lymphocytes 16.3 % (28.0-48.0); %Monocytes 7.8 % (0.0-4.0); %Neutrophils 73.1 % (31.0-61.0); Hematocrit 34.7 % (42.0-52.0); Hemoglobin 10.7 g/dL (14.0-18.0); Mean Corpuscular HGB CONC 30.8 g/dL (32.0-36.0); Mean Corpuscular Hemoglobin 30.1 pg (25.0-35.0); Mean Corpuscular Volume 97.5 fl (78.0-98.0); Mean Platelet Volume 10.3 fL (7.4-10.4); Platelet Count 351 10x3/uL (130-400); RBC Distribution Width 16.6 % (11.5-14.5); Red Blood Cell (RBC) Count 3.56 mill/uL (4.00-5.20); White Blood Cell (WBC) Count 6.5 10x3/uL (4.8-10.8)
[2023-10-11 05:53] LABS: ALT (SGPT) 228 U/L (8-55); AST (SGOT) 79 U/L (5-34); Albumin 4.1 g/dL (3.5-5.0); Alkaline Phosphatase 185 U/L (50-130); Anion Gap 14 mmol/L (10-20); BUN (Urea Nitrogen) 21 mg/dL (8.9-20.6); Bilirubin, Total 0.8 mg/dL (0.2-1.2); Calc. Creatinine Clearance 144 mL/min (70-130); Calcium 9.2 mg/dL (7.8-10.44); Carbon Dioxide 25 mmol/L (22-29); Chloride 106 mmol/L (98-107); Estimated GFR 129; Globulin 4.9 g/dL (2.4-3.5); Glucose 112 mg/dL (70-105); Potassium 4.1 mmol/L (3.5-5.1); Sodium 141 mmol/L (136-145)
[2023-10-11] MEDS ORDERED: Propofol 1,000 MG/100 ML VIAL IV ONE (07:05)
[2023-10-11] MEDS ORDERED: Propofol 1,000 MG/100 ML VIAL IV PRN (08:15)
[2023-10-11] MEDS ORDERED: Vancomycin 1 GM VIAL ONE (09:23)
[2023-10-11] MEDS ORDERED: EPINEPHrine 1 MG/ML VIAL ONE (09:24)
[2023-10-11] MEDS ORDERED: Lidocaine 1% (PF) 30 ML VIAL ONE (09:25)
[2023-10-11] MEDS ORDERED: Rocuronium Bromide 10 MG/ML (10ML VIAL) ONE ×2 (09:40→09:53)
[2023-10-11] MEDS: Amantadine HCl 100 mg Capsule PO SCH ×2 (09:43→22:01)
[2023-10-11] MEDS: Saccharomyces boulardii 250 MG CAP PO SCH (09:43)
[2023-10-11] MEDS: levETIRAcetam 500 MG (5 mL) VIAL SLOW IVP SCH ×2 (09:43→22:02)
[2023-10-11] MEDS: Famotidine 20 MG TAB PER TUBE SCH ×2 (09:43→22:02)
[2023-10-11] MEDS: Nystatin 500,000 UNITS/5 ML UDCUP SSW SCH ×4 (09:43→22:02)
[2023-10-11] MEDS: Propranolol 40 MG TAB PO SCH ×2 (09:43→22:46)
[2023-10-11] MEDS: QUEtiapine 25 MG TAB PER TUBE SCH ×2 (09:43→22:46)
[2023-10-11] MEDS ORDERED: Ondansetron PF 4 MG/2 ML Vial ONE ×2 (09:53→10:56)
[2023-10-11] MEDS ORDERED: PHENYLEPHRINE-NS 100 MCG/ML 10 ML SYRINGE ONE (09:53)
[2023-10-11] MEDS ORDERED: Dexamethasone 20 MG/5 ML VIAL ONE ×2 (09:53→10:56)
[2023-10-11] MEDS ORDERED: fentaNYL PF 100 MCG/2 ML SYRINGE ONE (09:54)
[2023-10-11] MEDS ORDERED: Vancomycin HCl 500 MG VIAL ONE (10:18)
[2023-10-11] MEDS ORDERED: Thrombin 5000 UNITS/5 ML VIAL ONE (10:20)
[2023-10-11] MEDS ORDERED: SUGAMMADEX SODIUM 200 MG/2 ML VIAL ONE (10:58)
[2023-10-11] MEDS: fentaNYL 25 mcg Patch TD SCH (12:48)
[2023-10-11 13:10] LABS: Vancomycin, Trough 30.8 ug/mL
[2023-10-11] MEDS: Acetaminophen 650 MG/20.3 ML UDCUP PO PRN ×2 (14:56→22:03)
[2023-10-11] MEDS: Morphine 2 MG/ML VIAL SLOW IVP PRN (14:57)
[2023-10-12] MEDS: Vancomycin HCl 125 MG/5 ML (BATCHED) UDCUP PER TUBE SCH ×2 (05:31→10:47)
[2023-10-12 06:10] LABS: ALT (SGPT) 182 U/L (8-55); AST (SGOT) 61 U/L (5-34); Albumin 4.3 g/dL (3.5-5.0); Alkaline Phosphatase 195 U/L (50-130); Anion Gap 17 mmol/L (10-20); BUN (Urea Nitrogen) 24 mg/dL (8.9-20.6); Bilirubin, Total 0.7 mg/dL (0.2-1.2); Calc. Creatinine Clearance 152 mL/min (70-130); Calcium 9.1 mg/dL (7.8-10.44); Carbon Dioxide 21 mmol/L (22-29); Chloride 104 mmol/L (98-107); Estimated GFR 132; Globulin 5.3 g/dL (2.4-3.5); Glucose 93 mg/dL (70-105); Potassium 4.6 mmol/L (3.5-5.1); Protein, Total 9.6 g/dL (6.0-8.3); Sodium 137 mmol/L (136-145)
[2023-10-12] MEDS: Propranolol 40 MG TAB PO SCH ×2 (08:53→22:17)
[2023-10-12] MEDS: QUEtiapine 25 MG TAB PER TUBE SCH (08:54)
[2023-10-12 10:02] LABS: #Eosinphils 0.1 thou/uL (0.0-0.7); #Monocytes 0.5 thou/uL (0.11-0.59); #Neutrophils 4.1 thou/uL (1.40-6.50); %Basophils 0.4 % (0.0-1.0); %Eosinophils 1.4 % (0.0-10.0); %Lymphocytes 17.3 % (28.0-48.0); %Monocytes 8.4 % (0.0-4.0); %Neutrophils 72.3 % (31.0-61.0); Hematocrit 32.9 % (42.0-52.0); Mean Corpuscular HGB CONC 30.4 g/dL (32.0-36.0); Mean Corpuscular Hemoglobin 30.3 pg (25.0-35.0); Mean Corpuscular Volume 99.7 fl (78.0-98.0); Mean Platelet Volume 10.8 fL (7.4-10.4); Platelet Count 258 10x3/uL (130-400); RBC Distribution Width 16.5 % (11.5-14.5); White Blood Cell (WBC) Count 5.7 10x3/uL (4.8-10.8)
[2023-10-12] MEDS: Famotidine 20 MG TAB PER TUBE SCH ×2 (10:25→21:51)
[2023-10-12] MEDS: Nystatin 500,000 UNITS/5 ML UDCUP SSW SCH ×4 (10:25→21:51)
[2023-10-12] MEDS: Saccharomyces boulardii 250 MG CAP PO SCH (10:25)
[2023-10-12] MEDS: Amantadine HCl 100 mg Capsule PO SCH ×2 (10:25→21:51)
[2023-10-12] MEDS: levETIRAcetam 500 MG (5 mL) VIAL SLOW IVP SCH ×2 (10:25→21:51)
[2023-10-12] MEDS ORDERED: QUEtiapine 25 MG TAB PER TUBE PRN (11:41)
[2023-10-12 12:48] LABS: Vancomycin, Random 2.1 ug/mL (See Comment)
[2023-10-12] MEDS ORDERED: Vancomycin HCl 750 MG in Sodium Chloride 0.9% 250 ML 250 ML IVPB SCH (13:00)
[2023-10-12] MEDS: Vancomycin (BATCH) 1.25 GM in Premix 1 BAG IVPB SCH (14:43)
[2023-10-12] MEDS: Acetaminophen 650 MG/20.3 ML UDCUP PO PRN (21:51)
[2023-10-13] MEDS: Vancomycin (BATCH) 1.25 GM in Premix 1 BAG IVPB SCH ×2 (01:22→13:31)
[2023-10-13 07:03] LABS: #Eosinphils 0.2 thou/uL (0.0-0.7); #Monocytes 0.6 thou/uL (0.11-0.59); #Neutrophils 3.7 thou/uL (1.40-6.50); %Basophils 0.5 % (0.0-1.0); %Eosinophils 3.1 % (0.0-10.0); %Lymphocytes 17.8 % (28.0-48.0); %Neutrophils 67.2 % (31.0-61.0); Hematocrit 30.9 % (42.0-52.0); Hemoglobin 9.6 g/dL (14.0-18.0); Mean Corpuscular HGB CONC 31.1 g/dL (32.0-36.0); Mean Corpuscular Hemoglobin 30.1 pg (25.0-35.0); Mean Corpuscular Volume 96.9 fl (78.0-98.0); Mean Platelet Volume 11.8 fL (7.4-10.4); Platelet Count 205 10x3/uL (130-400); RBC Distribution Width 16.7 % (11.5-14.5); Red Blood Cell (RBC) Count 3.19 mill/uL (4.00-5.20); White Blood Cell (WBC) Count 5.6 10x3/uL (4.8-10.8)
[2023-10-13 07:27] LABS: ALT (SGPT) 122 U/L (8-55); AST (SGOT) 44 U/L (5-34); Albumin 3.9 g/dL (3.5-5.0); Alkaline Phosphatase 168 U/L (50-130); Anion Gap 13 mmol/L (10-20); BUN (Urea Nitrogen) 24 mg/dL (8.9-20.6); Bilirubin, Total 0.5 mg/dL (0.2-1.2); Calc. Creatinine Clearance 145 mL/min (70-130); Calcium 8.9 mg/dL (7.8-10.44); Carbon Dioxide 26 mmol/L (22-29); Chloride 105 mmol/L (98-107); Estimated GFR 130; Globulin 4.4 g/dL (2.4-3.5); Glucose 107 mg/dL (70-105); Potassium 4.1 mmol/L (3.5-5.1); Protein, Total 8.3 g/dL (6.0-8.3); Sodium 140 mmol/L (136-145)
[2023-10-13] MEDS: Nystatin 500,000 UNITS/5 ML UDCUP SSW SCH ×4 (10:24→21:32)
[2023-10-13] MEDS: Amantadine HCl 100 mg Capsule PO SCH ×2 (10:25→21:32)
[2023-10-13] MEDS: Saccharomyces boulardii 250 MG CAP PO SCH (10:25)
[2023-10-13] MEDS: Famotidine 20 MG TAB PER TUBE SCH ×2 (10:25→21:32)
[2023-10-13] MEDS: levETIRAcetam 500 MG (5 mL) VIAL SLOW IVP SCH ×2 (10:25→21:32)
[2023-10-13] MEDS: Propranolol 40 MG TAB PO SCH ×2 (10:35→21:32)
[2023-10-13] MEDS: Scopolamine 1 mg/72 hour Patch TOP SCH (13:30)
[2023-10-13] MEDS: Acetaminophen 650 MG/20.3 ML UDCUP PO PRN (15:48)
[2023-10-13 15:49] LABS: Bilirubin Negative (Negative); Blood, Urine 3+ (Negative); Clarity Extra Turbid (Clear); Glucose, Urine (Dipstick) Normal (Negative); Ketone, Urine Negative (Negative); Leukocyte 500 Leu/uL (Negative); Nitrite Negative (Negative); Protein, Urine (Dipstick) 70 mg/dL (Neg-Trace); RBC/HPF Greater than 50 HPF (0-3); Specific Gravity, Urine 1.032 (1.002-1.036); Squamous Epithelial None Seen HPF (0-3); Urobilinogen Normal mg/dL (Less than 2)
[2023-10-13 15:55] LABS: Bacteria/HPF 2+ HPF (None Seen)
[2023-10-14 00:51] LABS: Vancomycin, Trough 6.5 ug/mL
[2023-10-14] MEDS: Vancomycin (BATCH) 1.25 GM in Premix 1 BAG IVPB SCH (01:17)
[2023-10-14] MEDS: Vancomycin HCl 750 MG in Sodium Chloride 0.9% 250 ML 250 ML IVPB SCH ×3 (01:32→16:55)
[2023-10-14 07:01] LABS: #Eosinphils 0.2 thou/uL (0.0-0.7); #Monocytes 0.5 thou/uL (0.11-0.59); #Neutrophils 2.9 thou/uL (1.40-6.50); %Basophils 0.7 % (0.0-1.0); %Eosinophils 4.2 % (0.0-10.0); %Lymphocytes 21.8 % (28.0-48.0); %Monocytes 9.9 % (0.0-4.0); Hemoglobin 11.1 g/dL (14.0-18.0); Mean Corpuscular Hemoglobin 30.2 pg (25.0-35.0); Mean Platelet Volume 11.3 fL (7.4-10.4); Platelet Count 222 10x3/uL (130-400); RBC Distribution Width 16.7 % (11.5-14.5); Red Blood Cell (RBC) Count 3.68 mill/uL (4.00-5.20); White Blood Cell (WBC) Count 4.5 10x3/uL (4.8-10.8)
[2023-10-14 07:28] LABS: ALT (SGPT) 115 U/L (8-55); AST (SGOT) 50 U/L (5-34); Albumin 3.9 g/dL (3.5-5.0); Alkaline Phosphatase 177 U/L (50-130); Anion Gap 17 mmol/L (10-20); BUN (Urea Nitrogen) 21 mg/dL (8.9-20.6); Bilirubin, Total 0.6 mg/dL (0.2-1.2); Calc. Creatinine Clearance 160 mL/min (70-130); Calcium 9.2 mg/dL (7.8-10.44); Carbon Dioxide 23 mmol/L (22-29); Chloride 107 mmol/L (98-107); Estimated GFR 135; Globulin 5.1 g/dL (2.4-3.5); Glucose 94 mg/dL (70-105); Potassium 4.6 mmol/L (3.5-5.1); Sodium 142 mmol/L (136-145)
[2023-10-14] MEDS ORDERED: Sodium Chloride 0.9% 0 ML ONE (08:35)
[2023-10-14] MEDS: levETIRAcetam 500 MG (5 mL) VIAL SLOW IVP SCH ×2 (08:39→20:55)
[2023-10-14] MEDS: Famotidine 20 MG TAB PER TUBE SCH ×2 (08:39→20:53)
[2023-10-14] MEDS: Nystatin 500,000 UNITS/5 ML UDCUP SSW SCH ×4 (08:39→20:55)
[2023-10-14] MEDS: Propranolol 40 MG TAB PO SCH ×2 (08:39→20:53)
[2023-10-14] MEDS: Saccharomyces boulardii 250 MG CAP PO SCH (08:39)
[2023-10-14] MEDS: fentaNYL 25 mcg Patch TD SCH (08:39)
[2023-10-14] MEDS: Amantadine HCl 100 mg Capsule PO SCH ×2 (08:40→20:55)
[2023-10-14] MEDS: Acetaminophen 650 MG/20.3 ML UDCUP PO PRN (15:21)
[2023-10-15] MEDS: Vancomycin HCl 750 MG in Sodium Chloride 0.9% 250 ML 250 ML IVPB SCH ×3 (00:25→16:54)
[2023-10-15 01:07] LABS: Vancomycin, Trough 14.4 ug/mL
[2023-10-15 07:09] LABS: #Eosinphils 0.2 thou/uL (0.0-0.7); #Monocytes 0.6 thou/uL (0.11-0.59); #Neutrophils 5.1 thou/uL (1.40-6.50); %Basophils 0.4 % (0.0-1.0); %Lymphocytes 14.4 % (28.0-48.0); %Monocytes 8.8 % (0.0-4.0); Hematocrit 31.3 % (42.0-52.0); Hemoglobin 9.6 g/dL (14.0-18.0); Mean Corpuscular HGB CONC 30.7 g/dL (32.0-36.0); Mean Corpuscular Hemoglobin 29.9 pg (25.0-35.0); Mean Corpuscular Volume 97.5 fl (78.0-98.0); Mean Platelet Volume 11.5 fL (7.4-10.4); Platelet Count 242 10x3/uL (130-400); RBC Distribution Width 16.5 % (11.5-14.5); Red Blood Cell (RBC) Count 3.21 mill/uL (4.00-5.20)
[2023-10-15 07:35] LABS: ALT (SGPT) 95 U/L (8-55); AST (SGOT) 37 U/L (5-34); Albumin 3.6 g/dL (3.5-5.0); Alkaline Phosphatase 164 U/L (50-130); Anion Gap 12 mmol/L (10-20); BUN (Urea Nitrogen) 26 mg/dL (8.9-20.6); Bilirubin, Total 0.4 mg/dL (0.2-1.2); Calc. Creatinine Clearance 167 mL/min (70-130); Calcium 8.6 mg/dL (7.8-10.44); Carbon Dioxide 27 mmol/L (22-29); Chloride 106 mmol/L (98-107); Estimated GFR 135; Globulin 4.2 g/dL (2.4-3.5); Glucose 110 mg/dL (70-105); Potassium 4.2 mmol/L (3.5-5.1); Protein, Total 7.8 g/dL (6.0-8.3); Sodium 141 mmol/L (136-145)
[2023-10-15] MEDS: Nystatin 500,000 UNITS/5 ML UDCUP SSW SCH ×4 (08:43→21:11)
[2023-10-15] MEDS: Amantadine HCl 100 mg Capsule PO SCH ×2 (08:43→21:11)
[2023-10-15] MEDS: Saccharomyces boulardii 250 MG CAP PO SCH (08:44)
[2023-10-15] MEDS: levETIRAcetam 500 MG (5 mL) VIAL SLOW IVP SCH ×2 (08:44→21:11)
[2023-10-15] MEDS: Famotidine 20 MG TAB PER TUBE SCH ×2 (08:44→21:11)
[2023-10-15] MEDS: Propranolol 40 MG TAB PO SCH ×2 (08:44→21:11)
[2023-10-15] MEDS ORDERED: Activase 2 MG VIAL CATH SCH ×2 (22:00→22:15)
[2023-10-15] MEDS ORDERED: Sterile Water 10 ML VIAL IVP SCH (22:15)
[2023-10-16 00:42] LABS: Vancomycin, Trough 9.3 ug/mL
[2023-10-16] MEDS: Vancomycin HCl 750 MG in Sodium Chloride 0.9% 250 ML 250 ML IVPB SCH ×3 (01:15→16:35)
[2023-10-16 04:48] LABS: #Eosinphils 0.2 thou/uL (0.0-0.7); #Monocytes 0.6 thou/uL (0.11-0.59); %Basophils 0.2 % (0.0-1.0); %Eosinophils 2.2 % (0.0-10.0); %Lymphocytes 11.6 % (28.0-48.0); %Monocytes 6.9 % (0.0-4.0); %Neutrophils 78.8 % (31.0-61.0); Hematocrit 30.5 % (42.0-52.0); Hemoglobin 9.4 g/dL (14.0-18.0); Mean Corpuscular HGB CONC 30.8 g/dL (32.0-36.0); Mean Corpuscular Hemoglobin 30.4 pg (25.0-35.0); Mean Corpuscular Volume 98.7 fl (78.0-98.0); Mean Platelet Volume 12.1 fL (7.4-10.4); Platelet Count 261 10x3/uL (130-400); RBC Distribution Width 16.4 % (11.5-14.5); Red Blood Cell (RBC) Count 3.09 mill/uL (4.00-5.20); White Blood Cell (WBC) Count 8.9 10x3/uL (4.8-10.8)
[2023-10-16 05:00] LABS: INR-International Normal Ratio 1.1; Prothrombin Time 14.3 sec (12.0-14.7)
[2023-10-16 05:01] LABS: PTT 23.7 sec (22.9-36.1)
[2023-10-16 05:14] LABS: ALT (SGPT) 92 U/L (8-55); AST (SGOT) 38 U/L (5-34); Albumin 3.6 g/dL (3.5-5.0); Alkaline Phosphatase 162 U/L (50-130); Anion Gap 10 mmol/L (10-20); BUN (Urea Nitrogen) 23 mg/dL (8.9-20.6); Bilirubin, Total 0.5 mg/dL (0.2-1.2); Calc. Creatinine Clearance 162 mL/min (70-130); Calcium 8.9 mg/dL (7.8-10.44); Carbon Dioxide 31 mmol/L (22-29); Chloride 104 mmol/L (98-107); Estimated GFR 134; Globulin 4.3 g/dL (2.4-3.5); Glucose 96 mg/dL (70-105); Protein, Total 7.9 g/dL (6.0-8.3); Sodium 141 mmol/L (136-145)
[2023-10-16] MEDS ORDERED: Vancomycin 1 GM VIAL ONE (06:14)
[2023-10-16] MEDS ORDERED: EPINEPHrine 1 MG/ML VIAL ONE (06:14)
[2023-10-16] MEDS ORDERED: Bupivacaine 0.25% HCL 30 ML VIAL ONE (06:14)
[2023-10-16] MEDS ORDERED: Bacitracin Zinc Ointment 30 gm TUBE ONE (06:14)
[2023-10-16] MEDS ORDERED: Thrombin 5000 UNITS/5 ML VIAL ONE (06:15)
[2023-10-16] MEDS ORDERED: Lidocaine 1% (PF) 30 ML VIAL ONE (06:15)
[2023-10-16] MEDS ORDERED: Vancomycin 1 GM in Premix 1 BAG IVPB SCH (06:30)
[2023-10-16] MEDS ORDERED: fentaNYL PF 100 MCG/2 ML SYRINGE ONE ×2 (07:35→08:15)
[2023-10-16] MEDS ORDERED: Vecuronium 10 MG VIAL ONE (07:35)
[2023-10-16] MEDS ORDERED: PROPOFOL 20 ML ONE (07:35)
[2023-10-16] MEDS ORDERED: LevoFLOXacin D5W 500 mg (100 mL) BAG ONE (07:36)
[2023-10-16] MEDS ORDERED: Dexamethasone 20 MG/5 ML VIAL ONE (08:05)
[2023-10-16] MEDS ORDERED: Ondansetron PF 4 MG/2 ML Vial ONE (08:05)
[2023-10-16] MEDS: Nystatin 500,000 UNITS/5 ML UDCUP SSW SCH ×4 (08:35→20:39)
[2023-10-16] MEDS: Propranolol 40 MG TAB PO SCH (08:35)
[2023-10-16] MEDS: Saccharomyces boulardii 250 MG CAP PO SCH (08:35)
[2023-10-16] MEDS: Amantadine HCl 100 mg Capsule PO SCH ×2 (08:35→20:39)
[2023-10-16] MEDS: levETIRAcetam 500 MG (5 mL) VIAL SLOW IVP SCH ×2 (08:35→20:39)
[2023-10-16] MEDS: Famotidine 20 MG TAB PER TUBE SCH ×2 (08:35→20:39)
[2023-10-16] MEDS ORDERED: PHENYLEPHRINE-NS 100 MCG/ML 10 ML SYRINGE ONE (09:26)
[2023-10-16] MEDS ORDERED: Glycopyrrolate 0.2 MG/ML 5 ML SYRINGE ONE (09:48)
[2023-10-16] MEDS ORDERED: NEOSTIGMINE 3 MG/3 ML SYR 3 MG/3 ML SYRINGE ONE (09:48)
[2023-10-16] MEDS: Morphine 2 MG/ML VIAL SLOW IVP PRN ×2 (11:37→19:30)
[2023-10-16] MEDS: Scopolamine 1 mg/72 hour Patch TOP SCH (13:17)
[2023-10-16] MEDS: Propranolol HCl 20 MG TAB PER TUBE SCH (20:39)
[2023-10-16] MEDS: Acetaminophen 650 MG/20.3 ML UDCUP PO PRN (20:40)
[2023-10-16] MEDS: Guaifenesin DM 100-10/5 ML UDCUP PO PRN (23:45)
[2023-10-17] MEDS: Acetaminophen 650 MG/20.3 ML UDCUP PO PRN ×3 (00:57→21:04)
[2023-10-17] MEDS: Morphine 2 MG/ML VIAL SLOW IVP PRN ×4 (00:57→19:39)
[2023-10-17] MEDS: Vancomycin HCl 750 MG in Sodium Chloride 0.9% 250 ML 250 ML IVPB SCH ×2 (01:32→08:09)
[2023-10-17 03:55] LABS: #Monocytes 0.6 thou/uL (0.11-0.59); #Neutrophils 6.4 thou/uL (1.40-6.50); %Basophils 0.1 % (0.0-1.0); %Eosinophils 0.3 % (0.0-10.0); %Lymphocytes 9.9 % (28.0-48.0); %Monocytes 7.5 % (0.0-4.0); %Neutrophils 82.1 % (31.0-61.0); Hematocrit 30.1 % (42.0-52.0); Hemoglobin 9.5 g/dL (14.0-18.0); Mean Corpuscular HGB CONC 31.6 g/dL (32.0-36.0); Mean Corpuscular Hemoglobin 30.2 pg (25.0-35.0); Mean Corpuscular Volume 95.6 fl (78.0-98.0); Mean Platelet Volume 11.5 fL (7.4-10.4); Platelet Count 241 10x3/uL (130-400); RBC Distribution Width 16.2 % (11.5-14.5); Red Blood Cell (RBC) Count 3.15 mill/uL (4.00-5.20); White Blood Cell (WBC) Count 7.8 10x3/uL (4.8-10.8)
[2023-10-17 04:22] LABS: ALT (SGPT) 100 U/L (8-55); AST (SGOT) 42 U/L (5-34); Albumin 3.6 g/dL (3.5-5.0); Alkaline Phosphatase 165 U/L (50-130); Anion Gap 13 mmol/L (10-20); BUN (Urea Nitrogen) 26 mg/dL (8.9-20.6); Bilirubin, Total 0.6 mg/dL (0.2-1.2); Calc. Creatinine Clearance 169 mL/min (70-130); Calcium 8.7 mg/dL (7.8-10.44); Carbon Dioxide 28 mmol/L (22-29); Chloride 102 mmol/L (98-107); Estimated GFR 135; Globulin 4.2 g/dL (2.4-3.5); Glucose 144 mg/dL (70-105); Potassium 3.5 mmol/L (3.5-5.1); Protein, Total 7.8 g/dL (6.0-8.3); Sodium 139 mmol/L (136-145)
[2023-10-17] MEDS: Guaifenesin DM 100-10/5 ML UDCUP PO PRN ×2 (05:01→21:04)
[2023-10-17] MEDS: Ondansetron PF 4 MG/2 ML Vial IVP PRN ×2 (07:29→16:26)
[2023-10-17] MEDS ORDERED: Potassium Chloride 20 MEQ TAB PO SCH (08:00)
[2023-10-17] MEDS: LevoFLOXacin 750 mg/D5W 750 MG in Premix 1 BAG IVPB SCH (08:09)
[2023-10-17] MEDS: Famotidine 20 MG TAB PER TUBE SCH ×2 (08:13→21:03)
[2023-10-17] MEDS: Amantadine HCl 100 mg Capsule PO SCH ×2 (08:13→21:03)
[2023-10-17] MEDS: fentaNYL 25 mcg Patch TD SCH (08:14)
[2023-10-17] MEDS: Nystatin 500,000 UNITS/5 ML UDCUP SSW SCH ×4 (08:14→21:04)
[2023-10-17] MEDS: levETIRAcetam 500 MG (5 mL) VIAL SLOW IVP SCH ×2 (08:14→21:03)
[2023-10-17] MEDS: Saccharomyces boulardii 250 MG CAP PO SCH (08:15)
[2023-10-17] MEDS: Propranolol HCl 20 MG TAB PER TUBE SCH ×2 (09:05→21:04)
[2023-10-17] MEDS ORDERED: Metoclopramide HCl 10 MG (2 mL) VIAL IVP SCH (10:30)
[2023-10-17] MEDS ORDERED: diphenhydrAMINE 50 MG/ML VIAL IVP SCH (10:30)
[2023-10-17] MEDS: QUEtiapine 25 MG TAB PO SCH (21:04)
[2023-10-18] MEDS: Guaifenesin DM 100-10/5 ML UDCUP PO PRN (03:45)
[2023-10-18] MEDS: Acetaminophen 650 MG/20.3 ML UDCUP PO PRN (03:45)
[2023-10-18 03:57] LABS: #Eosinphils 0.1 thou/uL (0.0-0.7); #Monocytes 0.6 thou/uL (0.11-0.59); #Neutrophils 8.1 thou/uL (1.40-6.50); %Basophils 0.3 % (0.0-1.0); %Eosinophils 0.7 % (0.0-10.0); %Lymphocytes 8.8 % (28.0-48.0); %Monocytes 5.8 % (0.0-4.0); %Neutrophils 84.1 % (31.0-61.0); Hematocrit 30.2 % (42.0-52.0); Hemoglobin 9.3 g/dL (14.0-18.0); Mean Corpuscular HGB CONC 30.8 g/dL (32.0-36.0); Mean Corpuscular Volume 97.4 fl (78.0-98.0); Mean Platelet Volume 11.3 fL (7.4-10.4); Platelet Count 231 10x3/uL (130-400); RBC Distribution Width 16.4 % (11.5-14.5); White Blood Cell (WBC) Count 9.6 10x3/uL (4.8-10.8)
[2023-10-18 04:23] LABS: ALT (SGPT) 92 U/L (8-55); AST (SGOT) 39 U/L (5-34); Albumin 3.6 g/dL (3.5-5.0); Alkaline Phosphatase 152 U/L (50-130); Anion Gap 12 mmol/L (10-20); BUN (Urea Nitrogen) 22 mg/dL (8.9-20.6); Bilirubin, Total 0.6 mg/dL (0.2-1.2); Calc. Creatinine Clearance 168 mL/min (70-130); Calcium 8.8 mg/dL (7.8-10.44); Carbon Dioxide 29 mmol/L (22-29); Chloride 102 mmol/L (98-107); Estimated GFR 137; Globulin 4.3 g/dL (2.4-3.5); Glucose 131 mg/dL (70-105); Potassium 3.7 mmol/L (3.5-5.1); Protein, Total 7.9 g/dL (6.0-8.3); Sodium 139 mmol/L (136-145)
[2023-10-18] MEDS: LevoFLOXacin 750 mg/D5W 750 MG in Premix 1 BAG IVPB SCH (07:55)
[2023-10-18] MEDS: QUEtiapine 25 MG TAB PO SCH ×2 (07:56→20:14)
[2023-10-18] MEDS: Famotidine 20 MG TAB PER TUBE SCH ×2 (07:56→20:14)
[2023-10-18] MEDS: Saccharomyces boulardii 250 MG CAP PO SCH (07:56)
[2023-10-18] MEDS: Amantadine HCl 100 mg Capsule PO SCH (07:56)
[2023-10-18] MEDS: levETIRAcetam 500 MG (5 mL) VIAL SLOW IVP SCH ×2 (07:57→20:15)
[2023-10-18] MEDS: Nystatin 500,000 UNITS/5 ML UDCUP SSW SCH ×4 (07:57→20:13)
[2023-10-18] MEDS: Propranolol HCl 20 MG TAB PER TUBE SCH (07:57)
[2023-10-18] MEDS ORDERED: Fentanyl 100 MCG/2 ML VIAL SLOW IVP PRN (10:16)
[2023-10-19] MEDS: fentaNYL 50 mcg/mL 1 mL Vial SLOW IVP PRN ×4 (01:53→17:15)
[2023-10-19] MEDS: LevoFLOXacin 750 mg/D5W 750 MG in Premix 1 BAG IVPB SCH (07:23)
[2023-10-19 07:52] LABS: #Monocytes 0.5 thou/uL (0.11-0.59); #Neutrophils 5.2 thou/uL (1.40-6.50); %Basophils 0.2 % (0.0-1.0); %Eosinophils 0.5 % (0.0-10.0); Hematocrit 28.1 % (42.0-52.0); Hemoglobin 8.6 g/dL (14.0-18.0); Mean Corpuscular HGB CONC 30.6 g/dL (32.0-36.0); Mean Corpuscular Hemoglobin 30.2 pg (25.0-35.0); Mean Corpuscular Volume 98.6 fl (78.0-98.0); Mean Platelet Volume 11.3 fL (7.4-10.4); Platelet Count 205 10x3/uL (130-400); RBC Distribution Width 15.9 % (11.5-14.5); Red Blood Cell (RBC) Count 2.85 mill/uL (4.00-5.20); White Blood Cell (WBC) Count 6.4 10x3/uL (4.8-10.8)
[2023-10-19 08:15] LABS: ALT (SGPT) 83 U/L (8-55); AST (SGOT) 40 U/L (5-34); Albumin 3.5 g/dL (3.5-5.0); Alkaline Phosphatase 157 U/L (50-130); Anion Gap 14 mmol/L (10-20); BUN (Urea Nitrogen) 17 mg/dL (8.9-20.6); Bilirubin, Total 0.5 mg/dL (0.2-1.2); Calc. Creatinine Clearance 153 mL/min (70-130); Calcium 8.4 mg/dL (7.8-10.44); Carbon Dioxide 26 mmol/L (22-29); Chloride 98 mmol/L (98-107); Estimated GFR 133; Glucose 305 mg/dL (70-105); Potassium 3.5 mmol/L (3.5-5.1); Protein, Total 7.5 g/dL (6.0-8.3); Sodium 134 mmol/L (136-145)
[2023-10-19] MEDS ORDERED: Propranolol HCl 20 MG TAB PER TUBE SCH (09:00)
[2023-10-19] MEDS ORDERED: Potassium Bicarbonate/Cit Ac 20 MEQ TAB PER TUBE SCH (10:00)
[2023-10-19] MEDS: Scopolamine 1 mg/72 hour Patch TOP SCH (10:14)
[2023-10-19] MEDS: Nystatin 500,000 UNITS/5 ML UDCUP SSW SCH ×4 (10:14→20:06)
[2023-10-19] MEDS: levETIRAcetam 500 MG (5 mL) VIAL SLOW IVP SCH ×2 (10:16→20:06)
[2023-10-19] MEDS: QUEtiapine 25 MG TAB PO SCH ×2 (10:16→20:06)
[2023-10-19] MEDS: Saccharomyces boulardii 250 MG CAP PO SCH (10:16)
[2023-10-19] MEDS: Famotidine 20 MG TAB PER TUBE SCH ×2 (10:16→20:06)
[2023-10-19 11:01] LABS: ALT (SGPT) 91 U/L (8-55); AST (SGOT) 43 U/L (5-34); Alkaline Phosphatase 173 U/L (50-130); Anion Gap 14 mmol/L (10-20); BUN (Urea Nitrogen) 17 mg/dL (8.9-20.6); Bilirubin, Total 0.5 mg/dL (0.2-1.2); Calc. Creatinine Clearance 160 mL/min (70-130); Calcium 9.5 mg/dL (7.8-10.44); Carbon Dioxide 28 mmol/L (22-29); Chloride 103 mmol/L (98-107); Estimated GFR 135; Globulin 4.4 g/dL (2.4-3.5); Glucose 112 mg/dL (70-105); Potassium 3.9 mmol/L (3.5-5.1); Protein, Total 8.4 g/dL (6.0-8.3); Sodium 141 mmol/L (136-145)
[2023-10-19] MEDS ORDERED: diphenhydrAMINE 25 MG CAP PO PRN (11:11)
[2023-10-19 11:57] LABS: Bacteria/HPF None Seen HPF (None Seen); Bilirubin Negative (Negative); Blood, Urine 2+ (Negative); CAUTI Indications for Culture Dysuria,urgency,freq; Clarity Clear (Clear); Glucose, Urine (Dipstick) Normal (Negative); Ketone, Urine Negative (Negative); Leukocyte 75 Leu/uL (Negative); Nitrite Negative (Negative); Protein, Urine (Dipstick) 50 mg/dL (Neg-Trace); RBC/HPF Greater than 50 HPF (0-3); Specific Gravity, Urine 1.033 (1.002-1.036); Squamous Epithelial None Seen HPF (0-3); Urobilinogen Normal mg/dL (Less than 2); WBC/HPF 21-50 HPF (0-3)
[2023-10-19 12:04] LABS: Urine Culture Reflex Yes Yes
[2023-10-19] MEDS: Morphine 2 MG/ML VIAL SLOW IVP PRN (16:55)
[2023-10-19] MEDS: Acetaminophen 650 MG/20.3 ML UDCUP PO PRN (17:16)
[2023-10-19] MEDS: diphenhydrAMINE 12.5 MG/5 ML UDCUP PO PRN (20:39)
[2023-10-20] MEDS: Morphine 2 MG/ML VIAL SLOW IVP PRN ×3 (00:41→05:35)
[2023-10-20] MEDS: fentaNYL 50 mcg/mL 1 mL Vial SLOW IVP PRN ×2 (04:01→09:29)
[2023-10-20 05:12] LABS: #Eosinphils 0.1 thou/uL (0.0-0.7); #Monocytes 0.6 thou/uL (0.11-0.59); #Neutrophils 3.6 thou/uL (1.40-6.50); %Basophils 0.4 % (0.0-1.0); %Lymphocytes 20.4 % (28.0-48.0); %Monocytes 11.5 % (0.0-4.0); %Neutrophils 65.5 % (31.0-61.0); Mean Corpuscular Hemoglobin 30.2 pg (25.0-35.0); Mean Corpuscular Volume 97.3 fl (78.0-98.0); Mean Platelet Volume 11.6 fL (7.4-10.4); Platelet Count 237 10x3/uL (130-400); RBC Distribution Width 15.9 % (11.5-14.5); Red Blood Cell (RBC) Count 2.98 mill/uL (4.00-5.20); White Blood Cell (WBC) Count 5.6 10x3/uL (4.8-10.8)
[2023-10-20 06:10] LABS: ALT (SGPT) 106 U/L (8-55); AST (SGOT) 53 U/L (5-34); Albumin 3.7 g/dL (3.5-5.0); Alkaline Phosphatase 165 U/L (50-130); Anion Gap 14 mmol/L (10-20); BUN (Urea Nitrogen) 24 mg/dL (8.9-20.6); Bilirubin, Total 0.4 mg/dL (0.2-1.2); Calc. Creatinine Clearance 153 mL/min (70-130); Calcium 9.1 mg/dL (7.8-10.44); Carbon Dioxide 28 mmol/L (22-29); Chloride 104 mmol/L (98-107); Estimated GFR 135; Globulin 4.4 g/dL (2.4-3.5); Glucose 102 mg/dL (70-105); Potassium 3.8 mmol/L (3.5-5.1); Protein, Total 8.1 g/dL (6.0-8.3); Sodium 142 mmol/L (136-145)
[2023-10-20] MEDS: QUEtiapine 25 MG TAB PO SCH ×2 (08:34→22:04)
[2023-10-20] MEDS: Saccharomyces boulardii 250 MG CAP PO SCH (08:34)
[2023-10-20] MEDS: Nystatin 500,000 UNITS/5 ML UDCUP SSW SCH ×4 (08:34→22:05)
[2023-10-20] MEDS: Famotidine 20 MG TAB PER TUBE SCH ×2 (08:34→22:04)
[2023-10-20] MEDS: LevoFLOXacin 750 mg/D5W 750 MG in Premix 1 BAG IVPB SCH (08:35)
[2023-10-20] MEDS: levETIRAcetam 500 MG (5 mL) VIAL SLOW IVP SCH ×2 (08:35→22:05)
[2023-10-20] MEDS: diphenhydrAMINE 12.5 MG/5 ML UDCUP PO PRN (22:16)
[2023-10-21 04:05] LABS: #Eosinphils 0.1 thou/uL (0.0-0.7); #Monocytes 0.5 thou/uL (0.11-0.59); #Neutrophils 3.8 thou/uL (1.40-6.50); %Basophils 0.4 % (0.0-1.0); %Eosinophils 1.9 % (0.0-10.0); %Lymphocytes 16.2 % (28.0-48.0); %Neutrophils 71.3 % (31.0-61.0); Hematocrit 29.7 % (42.0-52.0); Hemoglobin 9.2 g/dL (14.0-18.0); Mean Corpuscular Volume 96.7 fl (78.0-98.0); Mean Platelet Volume 11.3 fL (7.4-10.4); Platelet Count 264 10x3/uL (130-400); RBC Distribution Width 15.8 % (11.5-14.5); Red Blood Cell (RBC) Count 3.07 mill/uL (4.00-5.20); White Blood Cell (WBC) Count 5.3 10x3/uL (4.8-10.8)
[2023-10-21 04:31] LABS: ALT (SGPT) 122 U/L (8-55); AST (SGOT) 58 U/L (5-34); Albumin 3.8 g/dL (3.5-5.0); Alkaline Phosphatase 159 U/L (50-130); Anion Gap 15 mmol/L (10-20); BUN (Urea Nitrogen) 22 mg/dL (8.9-20.6); Bilirubin, Total 0.4 mg/dL (0.2-1.2); Calc. Creatinine Clearance 153 mL/min (70-130); Calcium 9.4 mg/dL (7.8-10.44); Carbon Dioxide 30 mmol/L (22-29); Chloride 104 mmol/L (98-107); Estimated GFR 135; Globulin 4.4 g/dL (2.4-3.5); Glucose 118 mg/dL (70-105); Potassium 3.8 mmol/L (3.5-5.1); Protein, Total 8.2 g/dL (6.0-8.3); Sodium 145 mmol/L (136-145)
[2023-10-21] MEDS: levETIRAcetam 500 MG (5 mL) VIAL SLOW IVP SCH ×2 (09:10→20:53)
[2023-10-21] MEDS: LevoFLOXacin 750 mg/D5W 750 MG in Premix 1 BAG IVPB SCH (09:10)
[2023-10-21] MEDS: QUEtiapine 25 MG TAB PO SCH ×2 (09:10→20:53)
[2023-10-21] MEDS: Famotidine 20 MG TAB PER TUBE SCH ×2 (09:10→20:53)
[2023-10-21] MEDS: Nystatin 500,000 UNITS/5 ML UDCUP SSW SCH ×4 (09:10→20:53)
[2023-10-21] MEDS: Saccharomyces boulardii 250 MG CAP PO SCH (09:10)
[2023-10-21] MEDS: Acetaminophen 650 MG/20.3 ML UDCUP PO PRN (12:16)
[2023-10-21] MEDS: diphenhydrAMINE 12.5 MG/5 ML UDCUP PO PRN (20:53)
[2023-10-22 04:49] LABS: #Eosinphils 0.1 thou/uL (0.0-0.7); #Monocytes 0.5 thou/uL (0.11-0.59); #Neutrophils 4.2 thou/uL (1.40-6.50); %Basophils 0.5 % (0.0-1.0); %Eosinophils 1.2 % (0.0-10.0); %Lymphocytes 17.6 % (28.0-48.0); %Monocytes 8.2 % (0.0-4.0); %Neutrophils 72.2 % (31.0-61.0); Hematocrit 33.1 % (42.0-52.0); Hemoglobin 10.2 g/dL (14.0-18.0); Mean Corpuscular HGB CONC 30.8 g/dL (32.0-36.0); Mean Corpuscular Hemoglobin 29.5 pg (25.0-35.0); Mean Corpuscular Volume 95.7 fl (78.0-98.0); Mean Platelet Volume 10.9 fL (7.4-10.4); Platelet Count 288 10x3/uL (130-400); RBC Distribution Width 15.7 % (11.5-14.5); Red Blood Cell (RBC) Count 3.46 mill/uL (4.00-5.20); White Blood Cell (WBC) Count 5.9 10x3/uL (4.8-10.8)
[2023-10-22 05:22] LABS: ALT (SGPT) 190 U/L (8-55); AST (SGOT) 86 U/L (5-34); Albumin 4.2 g/dL (3.5-5.0); Alkaline Phosphatase 178 U/L (50-130); Anion Gap 12 mmol/L (10-20); BUN (Urea Nitrogen) 27 mg/dL (8.9-20.6); Bilirubin, Total 0.5 mg/dL (0.2-1.2); Calc. Creatinine Clearance 148 mL/min (70-130); Calcium 9.7 mg/dL (7.8-10.44); Carbon Dioxide 32 mmol/L (22-29); Chloride 105 mmol/L (98-107); Estimated GFR 133; Globulin 4.8 g/dL (2.4-3.5); Glucose 124 mg/dL (70-105); Potassium 3.9 mmol/L (3.5-5.1); Sodium 145 mmol/L (136-145)
[2023-10-22] MEDS: Nystatin 500,000 UNITS/5 ML UDCUP SSW SCH ×4 (08:51→21:26)
[2023-10-22] MEDS: QUEtiapine 25 MG TAB PO SCH ×2 (08:51→21:26)
[2023-10-22] MEDS: Famotidine 20 MG TAB PER TUBE SCH ×2 (08:51→21:26)
[2023-10-22] MEDS: levETIRAcetam 500 MG (5 mL) VIAL SLOW IVP SCH ×2 (08:51→21:26)
[2023-10-22] MEDS: Saccharomyces boulardii 250 MG CAP PO SCH (08:51)
[2023-10-22] MEDS: Scopolamine 1 mg/72 hour Patch TOP SCH (12:38)
[2023-10-22] MEDS: Ondansetron PF 4 MG/2 ML Vial IVP PRN (19:57)
[2023-10-23 05:41] LABS: #Eosinphils 0.1 thou/uL (0.0-0.7); #Monocytes 0.6 thou/uL (0.11-0.59); #Neutrophils 6.1 thou/uL (1.40-6.50); %Basophils 0.4 % (0.0-1.0); %Eosinophils 1.3 % (0.0-10.0); %Monocytes 7.9 % (0.0-4.0); Hematocrit 40.9 % (42.0-52.0); Hemoglobin 12.6 g/dL (14.0-18.0); Mean Corpuscular HGB CONC 30.8 g/dL (32.0-36.0); Mean Corpuscular Hemoglobin 29.6 pg (25.0-35.0); Mean Corpuscular Volume 96.2 fl (78.0-98.0); Mean Platelet Volume 11.3 fL (7.4-10.4); Platelet Count 220 10x3/uL (130-400); RBC Distribution Width 16.1 % (11.5-14.5); Red Blood Cell (RBC) Count 4.25 mill/uL (4.00-5.20); White Blood Cell (WBC) Count 7.8 10x3/uL (4.8-10.8)
[2023-10-23 06:17] LABS: Albumin 4.5 g/dL (3.5-5.0); Bilirubin, Total 0.4 mg/dL (0.2-1.2); Calcium 9.6 mg/dL (7.8-10.44); Chloride 106 mmol/L (98-107); Globulin 5.3 g/dL (2.4-3.5); Glucose 105 mg/dL (70-105); Potassium 4.2 mmol/L (3.5-5.1); Protein, Total 9.8 g/dL (6.0-8.3); Sodium 142 mmol/L (136-145)
[2023-10-23 06:18] LABS: Anion Gap 17 mmol/L (10-20); Carbon Dioxide 22 mmol/L (22-29)
[2023-10-23 06:19] LABS: Alkaline Phosphatase 195 U/L (50-130)
[2023-10-23 06:20] LABS: BUN (Urea Nitrogen) 26 mg/dL (8.9-20.6); Calc. Creatinine Clearance 137 mL/min (70-130); Estimated GFR 130
[2023-10-23 06:21] LABS: AST (SGOT) 64 U/L (5-34)
[2023-10-23 06:22] LABS: ALT (SGPT) 183 U/L (8-55)
[2023-10-23] MEDS: Saccharomyces boulardii 250 MG CAP PO SCH (08:47)
[2023-10-23] MEDS: Famotidine 20 MG TAB PER TUBE SCH ×2 (08:47→21:13)
[2023-10-23] MEDS: Nystatin 500,000 UNITS/5 ML UDCUP SSW SCH ×4 (08:47→21:13)
[2023-10-23] MEDS: levETIRAcetam 500 MG (5 mL) VIAL SLOW IVP SCH ×2 (08:47→21:13)
[2023-10-23] MEDS: Ondansetron PF 4 MG/2 ML Vial IVP PRN (08:51)
[2023-10-23] MEDS: QUEtiapine 25 MG TAB PO SCH ×2 (08:57→21:13)
[2023-10-23] MEDS: Acetaminophen 650 MG/20.3 ML UDCUP PO PRN (21:13)
[2023-10-23] MEDS: diphenhydrAMINE 12.5 MG/5 ML UDCUP PO PRN (22:11)
[2023-10-24] MEDS: Acetaminophen 650 MG/20.3 ML UDCUP PO PRN ×2 (03:29→13:51)
[2023-10-24 07:56] LABS: Hematocrit 40.2 % (42.0-52.0); Hemoglobin 12.5 g/dL (14.0-18.0); Manual Diff?? YES; Mean Corpuscular HGB CONC 31.1 g/dL (32.0-36.0); Mean Corpuscular Hemoglobin 29.3 pg (25.0-35.0); Mean Corpuscular Volume 94.4 fl (78.0-98.0); Mean Platelet Volume 11.3 fL (7.4-10.4); Platelet Count 210 10x3/uL (130-400); RBC Distribution Width 15.9 % (11.5-14.5); Red Blood Cell (RBC) Count 4.26 mill/uL (4.00-5.20); White Blood Cell (WBC) Count 5.5 10x3/uL (4.8-10.8)
[2023-10-24 08:00] LABS: ALT (SGPT) 211 U/L (8-55); AST (SGOT) 79 U/L (5-34); Albumin 4.1 g/dL (3.5-5.0); Alkaline Phosphatase 175 U/L (50-130); Anion Gap 16 mmol/L (10-20); BUN (Urea Nitrogen) 25 mg/dL (8.9-20.6); Bilirubin, Total 0.4 mg/dL (0.2-1.2); Calc. Creatinine Clearance 137 mL/min (70-130); Calcium 9.4 mg/dL (7.8-10.44); Carbon Dioxide 25 mmol/L (22-29); Chloride 107 mmol/L (98-107); Estimated GFR 131; Globulin 4.8 g/dL (2.4-3.5); Glucose 106 mg/dL (70-105); Potassium 3.9 mmol/L (3.5-5.1); Protein, Total 8.9 g/dL (6.0-8.3); Sodium 144 mmol/L (136-145)
[2023-10-24 08:06] LABS: Delete Auto Diff?? YES
[2023-10-24 08:52] LABS: Anisocytosis SLIGHT = 6-15 cells HPF (0-5); CellaVision Operator ID LAB.NR; Eosinophils 1 % (0-10); Lymphocytes 17 % (28-48); Macrocytosis SLIGHT = 6-15 cells HPF (0-5); Monocytes 15 % (0-4); Neutrophil 66 % (31-61); Platelet Adequacy Comment Platelets Normal; Polychromasia SLIGHT = 2-3 cells HPF (0-2); Total Cell Count 100
[2023-10-24] MEDS: Saccharomyces boulardii 250 MG CAP PO SCH (09:52)
[2023-10-24] MEDS: Famotidine 20 MG TAB PER TUBE SCH ×2 (09:52→20:42)
[2023-10-24] MEDS: Nystatin 500,000 UNITS/5 ML UDCUP SSW SCH ×4 (09:52→20:42)
[2023-10-24] MEDS: levETIRAcetam 500 MG (5 mL) VIAL SLOW IVP SCH ×2 (09:52→20:42)
[2023-10-24] MEDS: QUEtiapine 25 MG TAB PO SCH (20:43)
[2023-10-24] MEDS: diphenhydrAMINE 12.5 MG/5 ML UDCUP PO PRN (22:13)
[2023-10-25] MEDS: Famotidine 20 MG TAB PER TUBE SCH ×2 (09:44→21:23)
[2023-10-25] MEDS: levETIRAcetam 500 MG (5 mL) VIAL SLOW IVP SCH ×2 (09:44→21:24)
[2023-10-25] MEDS: Saccharomyces boulardii 250 MG CAP PO SCH (09:44)
[2023-10-25] MEDS: Nystatin 500,000 UNITS/5 ML UDCUP SSW SCH ×4 (09:46→21:23)
[2023-10-25] MEDS: Scopolamine 1 mg/72 hour Patch TOP SCH (13:02)
[2023-10-25] MEDS: QUEtiapine 25 MG TAB PO SCH (21:23)
[2023-10-25] MEDS: Acetaminophen 650 MG/20.3 ML UDCUP PO PRN (21:24)
[2023-10-25] MEDS: diphenhydrAMINE 12.5 MG/5 ML UDCUP PO PRN (21:34)
[2023-10-26] MEDS: levETIRAcetam 500 MG (5 mL) VIAL SLOW IVP SCH ×2 (09:37→20:51)
[2023-10-26] MEDS: Nystatin 500,000 UNITS/5 ML UDCUP SSW SCH ×4 (09:37→20:52)
[2023-10-26] MEDS: Famotidine 20 MG TAB PER TUBE SCH ×2 (09:37→20:51)
[2023-10-26] MEDS: Saccharomyces boulardii 250 MG CAP PO SCH (09:37)
[2023-10-26] MEDS: Acetaminophen 650 MG/20.3 ML UDCUP PO PRN ×2 (10:49→23:40)
[2023-10-26] MEDS: QUEtiapine 25 MG TAB PO SCH (20:51)
[2023-10-26] MEDS: diphenhydrAMINE 12.5 MG/5 ML UDCUP PO PRN (21:08)
[2023-10-27] MEDS: fentaNYL 50 mcg/mL 1 mL Vial SLOW IVP PRN (02:15)
[2023-10-27] MEDS: Acetaminophen 650 MG/20.3 ML UDCUP PO PRN (03:30)
[2023-10-27] MEDS ORDERED: diphenhydrAMINE 25 MG CAP PO PRN (04:02)
[2023-10-27] MEDS: Famotidine 20 MG TAB PER TUBE SCH ×2 (08:37→21:21)
[2023-10-27] MEDS: levETIRAcetam 500 MG (5 mL) VIAL SLOW IVP SCH ×2 (08:37→21:21)
[2023-10-27] MEDS: Nystatin 500,000 UNITS/5 ML UDCUP SSW SCH ×4 (08:37→21:21)
[2023-10-27] MEDS: Saccharomyces boulardii 250 MG CAP PO SCH (08:37)
[2023-10-27] MEDS: diphenhydrAMINE 12.5 MG/5 ML UDCUP PO PRN (21:20)
[2023-10-27] MEDS: QUEtiapine 25 MG TAB PO SCH (21:21)
[2023-10-28] MEDS: Nystatin 500,000 UNITS/5 ML UDCUP SSW SCH ×2 (09:38→13:50)
[2023-10-28] MEDS: Famotidine 20 MG TAB PER TUBE SCH ×2 (09:38→20:38)
[2023-10-28] MEDS: Saccharomyces boulardii 250 MG CAP PO SCH (09:38)
[2023-10-28] MEDS: levETIRAcetam 500 MG (5 mL) VIAL SLOW IVP SCH ×2 (09:38→20:38)
[2023-10-28] MEDS: Scopolamine 1 mg/72 hour Patch TOP SCH (13:50)
[2023-10-28] MEDS: diphenhydrAMINE 12.5 MG/5 ML UDCUP PO PRN (20:38)
[2023-10-29] MEDS: levETIRAcetam 500 MG (5 mL) VIAL SLOW IVP SCH ×2 (08:50→20:37)
[2023-10-29] MEDS: Saccharomyces boulardii 250 MG CAP PO SCH (08:50)
[2023-10-29] MEDS: Famotidine 20 MG TAB PER TUBE SCH ×2 (08:50→20:37)
[2023-10-30] MEDS: diphenhydrAMINE 12.5 MG/5 ML UDCUP PO PRN (01:07)
[2023-10-30] MEDS: Acetaminophen 650 MG/20.3 ML UDCUP PO PRN (09:14)
[2023-10-30] MEDS: Famotidine 20 MG TAB PER TUBE SCH ×2 (09:21→22:32)
[2023-10-30] MEDS: levETIRAcetam 500 MG (5 mL) VIAL SLOW IVP SCH ×2 (09:21→22:33)
[2023-10-30] MEDS: Saccharomyces boulardii 250 MG CAP PO SCH (09:21)
[2023-10-31] MEDS: levETIRAcetam 500 MG (5 mL) VIAL SLOW IVP SCH ×2 (10:07→20:42)
[2023-10-31] MEDS: Saccharomyces boulardii 250 MG CAP PO SCH (10:07)
[2023-10-31] MEDS: Scopolamine 1 mg/72 hour Patch TOP SCH (10:07)
[2023-10-31] MEDS: Famotidine 20 MG TAB PER TUBE SCH ×2 (10:07→20:42)
[2023-10-31 16:08] VITALS: BP 115/61
[2023-10-31] MEDS: Acetaminophen 650 MG/20.3 ML UDCUP PO PRN (18:44)
[2023-10-31] MEDS: diphenhydrAMINE 12.5 MG/5 ML UDCUP PO PRN (20:43)
[2023-11-01] MEDS: Saccharomyces boulardii 250 MG CAP PO SCH (10:15)
[2023-11-01] MEDS: Famotidine 20 MG TAB PER TUBE SCH ×2 (10:15→20:53)
[2023-11-01] MEDS: levETIRAcetam 500 MG (5 mL) VIAL SLOW IVP SCH ×2 (10:15→20:53)
[2023-11-01] MEDS: Acetaminophen 650 MG/20.3 ML UDCUP PO PRN (16:56)
[2023-11-01] MEDS: diphenhydrAMINE 12.5 MG/5 ML UDCUP PO PRN (20:53)
[2023-11-02] MEDS: Famotidine 20 MG TAB PER TUBE SCH ×2 (09:11→21:12)
[2023-11-02] MEDS: Saccharomyces boulardii 250 MG CAP PO SCH (09:11)
[2023-11-02] MEDS: levETIRAcetam 500 MG (5 mL) VIAL SLOW IVP SCH ×2 (09:11→21:12)
[2023-11-02] MEDS ORDERED: Sodium Chloride 0.9% 100 ML ONE (20:56)
[2023-11-02] MEDS: diphenhydrAMINE 12.5 MG/5 ML UDCUP PO PRN (21:18)
[2023-11-03 04:32] VITALS: TEMP 97.9
[2023-11-03 05:28] VITALS: BMI 19.9
[2023-11-03] MEDS: Saccharomyces boulardii 250 MG CAP PO SCH (08:44)
[2023-11-03] MEDS: Famotidine 20 MG TAB PER TUBE SCH (08:44)
[2023-11-03] MEDS: Acetaminophen 650 MG/20.3 ML UDCUP PO PRN (08:44)
[2023-11-03] MEDS: levETIRAcetam 500 MG (5 mL) VIAL SLOW IVP SCH (08:45)
[2023-11-03] MEDS: Scopolamine 1 mg/72 hour Patch TOP SCH (08:57)
== END 2023-11-03 10:45 | DRG 3 ==
LOC: ERS 13:54 → CCU 15:31 → SDC 15:31 → CCU 19:53 → IMCU/EMU 10-28 19:19
PROVIDERS: ADMIT Surgery; ATTEND Surgery
PROC: 05H533Z Insertion of Infusion Device into Right Subclavian Vein, Percutaneous Approach (ICD-10-PCS; principal; 2023-09-19)
PROC: 009600Z Drainage of Cerebral Ventricle with Drainage Device, Open Approach (ICD-10-PCS; 2023-09-19)
PROC: 00Q20ZZ Repair Dura Mater, Open Approach (ICD-10-PCS; 2023-09-19)
PROC: 00C40ZZ Extirpation of Matter from Intracranial Subdural Space, Open Approach (ICD-10-PCS; 2023-09-19)
PROC: 0PSH04Z Reposition Right Radius with Internal Fixation Device, Open Approach (ICD-10-PCS; 2023-09-19)
PROC: 0PSK04Z Reposition Right Ulna with Internal Fixation Device, Open Approach (ICD-10-PCS; 2023-09-19)
PROC: 4A133R1 Monitoring of Arterial Saturation, Peripheral, Percutaneous Approach (ICD-10-PCS; 2023-09-19)
PROC: 3E033XZ Introduction of Vasopressor into Peripheral Vein, Percutaneous Approach (ICD-10-PCS; 2023-09-19)
PROC: 3E0234Z Introduction of Serum, Toxoid and Vaccine into Muscle, Percutaneous Approach (ICD-10-PCS; 2023-09-19)
PROC: 5A1955Z Respiratory Ventilation, Greater than 96 Consecutive Hours (ICD-10-PCS; 2023-09-20)
PROC: 0BH17EZ Insertion of Endotracheal Airway into Trachea, Via Natural or Artificial Opening (ICD-10-PCS; 2023-09-20)
PROC: 0B110F4 Bypass Trachea to Cutaneous with Tracheostomy Device, Open Approach (ICD-10-PCS; 2023-09-28)
PROC: 0DH63UZ Insertion of Feeding Device into Stomach, Percutaneous Approach (ICD-10-PCS; 2023-09-28)
PROC: 06H03DZ Insertion of Intraluminal Device into Inferior Vena Cava, Percutaneous Approach (ICD-10-PCS; 2023-09-29)
PROC: 02HV33Z Insertion of Infusion Device into Superior Vena Cava, Percutaneous Approach (ICD-10-PCS; 2023-09-30)
PROC: B5181ZA Fluoroscopy of Superior Vena Cava using Low Osmolar Contrast, Guidance (ICD-10-PCS; 2023-09-30)
PROC: B548ZZA Ultrasonography of Superior Vena Cava, Guidance (ICD-10-PCS; 2023-09-30)
PROC: 009600Z Drainage of Cerebral Ventricle with Drainage Device, Open Approach (ICD-10-PCS; 2023-10-11)
PROC: 00160J6 Bypass Cerebral Ventricle to Peritoneal Cavity with Synthetic Substitute, Open Approach (ICD-10-PCS; 2023-10-16)
PROC: 0DP6XUZ Removal of Feeding Device from Stomach, External Approach (ICD-10-PCS; 2023-10-19)
PROC: 0DH63UZ Insertion of Feeding Device into Stomach, Percutaneous Approach (ICD-10-PCS; 2023-10-19)
DX: S06.5X9A Traumatic subdural hemorrhage with loss of consciousness of unspecified duration, initial encounter (principal); S52.302B Unspecified fracture of shaft of left radius, initial encounter for open fracture type I or II; S52.202B Unspecified fracture of shaft of left ulna, initial encounter for open fracture type I or II; S37.061A Major laceration of right kidney, initial encounter; S36.031A Moderate laceration of spleen, initial encounter; G93.41 Metabolic encephalopathy; J80 Acute respiratory distress syndrome; J69.0 Pneumonitis due to inhalation of food and vomit; S27.0XXA Traumatic pneumothorax, initial encounter; S22.038A Other fracture of third thoracic vertebra, initial encounter for closed fracture; S27.322A Contusion of lung, bilateral, initial encounter; I82.411 Acute embolism and thrombosis of right femoral vein; G91.9 Hydrocephalus, unspecified; E46 Unspecified protein-calorie malnutrition; R19.7 Diarrhea, unspecified; S06.1X9A Traumatic cerebral edema with loss of consciousness of unspecified duration, initial encounter; S62.311A Displaced fracture of base of second metacarpal bone, left hand, initial encounter for closed fracture; J45.909 Unspecified asthma, uncomplicated; S62.313A Displaced fracture of base of third metacarpal bone, left hand, initial encounter for closed fracture; S62.321A Displaced fracture of shaft of second metacarpal bone, left hand, initial encounter for closed fracture; S62.323A Displaced fracture of shaft of third metacarpal bone, left hand, initial encounter for closed fracture; V29.99XA Rider (driver) (passenger) of other motorcycle injured in unspecified traffic accident, initial encounter; Z23 Encounter for immunization; Z68.20 Body mass index [BMI] 20.0-20.9, adult
CPT/HCPCS: 31500; 36415; 36416; 36556; 36569; 36600; 37191; 51702; 70450; 70486; 71045; 71260; 72125; 72141; 72170; 74018; 74177; 80048; 80053; 80076; 80202; 80306; 80307; 81001; 82550; 82805; 82945; 83605; 83690; 83735; 83930; 84100; 84145; 84157; 84295; 84478; 85025; 85060; 85610; 85730; 86850; 86900; 86901; 87040; 87070; 87071; 87077; 87086; 87102; 87149; 87186; 87205; 87206; 87324; 87449; 87493; 87505; 89051; 90471; 90715; 93005; 93010; 93970; 94002; 94003; 94640; 94760; 96365; 96367; 96375; C1713; C1729; C1750; C1769; C1789; C1880; C1894; C9113; G0390; J0171; J0360; J0690; J0692; J1100; J1200; J1650; J1885; J1940; J1953; J1956; J2001; J2060; J2150; J2250; J2270; J2272; J2405; J2543; J2704; J2765; J2997; J3010; J3370; J3370-JW; J3475; J3480; J3490; J7050; J7120; J7131; Q0163; Q9967; S0020